=== PATIENT | female | born 1945 | race Caucasian/White ===

== ENCOUNTER 2017-06-17 08:22 | Inpatient (IN) | payer MEDICARE ==
[~2017-06-17] VITALS: Ht 154.9 cm; Wt 55.4 kg
[2017-06-17] MEDS ORDERED: LISI10TA4 (08:38)
[2017-06-17] MEDS ORDERED: CITA10TA5 (08:38)
[2017-06-17] MEDS ORDERED: HYDR-643 (08:38)
[2017-06-17] MEDS: VITAMIN D 1,000 INTERNATIONAL UNITS TABLET PO SCH (09:00)
[2017-06-17] MEDS ORDERED: OMEPRAZOLE 20 MG CAP PO SCH (09:00)
[2017-06-17 09:39] LABS: MEAN CORPUSCULAR HEMOGLOBIN 30.8 pg (27.0-33.0); MEAN CORPUSCULAR HGB CONC 33.7 g/dl (32.0-36.5); MEAN CORPUSCULAR VOLUME 91.3 fl (80.0-96.0); PLATELET COUNT, AUTOMATED 205 10^3/uL (150-450); RED CELL DISTRIBUTION WIDTH 12.2 % (11.5-14.5); WHITE BLOOD COUNT 5.5 10^3/uL (4.0-10.0)
[2017-06-17 10:10] LABS: ALBUMIN/GLOBULIN RATIO 1.43 (1.00-1.93); ALKALINE PHOSPHATASE 67 U/L (45-117); ALT/SGPT 18 U/L (12-78); ANION GAP 6 MEQ/L (8-16); AST/SGOT 13 U/L (15-37); BILIRUBIN,DIRECT 0.1 MG/DL (0.0-0.2); BILIRUBIN,TOTAL 0.4 MG/DL (0.2-1.0); BLOOD UREA NITROGEN 13 MG/DL (7-18); CALCIUM LEVEL 9.5 MG/DL (8.8-10.2); CARBON DIOXIDE LEVEL 29 MEQ/L (21-32); CHLORIDE LEVEL 107 MEQ/L (98-107); CREATININE FOR GFR 0.65 MG/DL (0.55-1.02); GLOMERULAR FILTRATION RATE > 60.0 (>39); GLUCOSE, FASTING 101 MG/DL (83-110); POTASSIUM SERUM 4.1 MEQ/L (3.5-5.1); SODIUM LEVEL 142 MEQ/L (136-145); TOTAL PROTEIN 6.8 GM/DL (6.4-8.2)
[2017-06-17] MEDS ORDERED: HYDR-643 PO (10:25)
[2017-06-17] MEDS ORDERED: CITA10TA5 PO (10:25)
[2017-06-17] MEDS ORDERED: LISI10TA4 PO (10:25)
[2017-06-17] MEDS ORDERED: ACET50TAOT PO (11:14)
[2017-06-17 11:20] LABS: METHADONE URINE NEGATIVE (NEGATIVE)
--- NOTE | 2017-06-17 11:43 | REP ---
CT Head without contrast HISTORY: Psychosis COMPARISON: 03/24/2017 Areas of decreased attenuation are present in the periventricular and subcortical white matter. This represents small-vessel ischemic disease. There is no intraparenchymal hemorrhage, acute infarct, mass or midline shift. The ventricular system and cortical sulci are dilated consistent with moderate volume loss. A jitendra cisterna magna is present. There is no extra cerebral collection. There is no fracture. The visualized sinuses are clear. IMPRESSION: 1. Small vessel ischemic disease. 2. Moderate volume loss. Signed by Alfie Jacobson MD 06/17/2017 11:35 A
[2017-06-17 13:04] LABS: VITAMIN B12 LEVEL 740 PG/ML (247-911)
[2017-06-17 13:05] LABS: FOLATE > 24.0 NG/ML (>5.4)
[2017-06-17] MEDS ORDERED: MAALOX 30 ML SUSP *UDC PO PRN (15:30)
[2017-06-17] MEDS ORDERED: MOM 30ML SUSPENSION UDC PO PRN (15:30)
[2017-06-17] MEDS ORDERED: traZODone 50 MG TAB PO PRN (15:30)
[2017-06-17 17:47] VITALS: BP 144/82
[2017-06-17] MEDS ORDERED: hydrOXYzine 50 MG TAB PO SCH (21:00)
[2017-06-18 06:34] VITALS: BP 139/72
[2017-06-18] MEDS ORDERED: CitaloPRAM (CeleXA) 10 MG TABLET PO SCH (09:00)
--- NOTE | 2017-06-18 09:44 | HPEPDOC ---
[facility] Medical History & Physical Date of Admission Jun 17, 2017 History and Physical PCP: Dr Lee ATTENDING: Dr. Charbel Cullen HPI: 72yo[address] [facility] for psychosis NOS, being medically examined today. No acute medical complaints today. Denies any fevers, chills, weakness, fatigue , GOLDMAN, CP, SOB, cough, palpitations, abdominal pain, N/V/D or changes in bowel or bladder habits. PMHx: Hypertension Depression Anxiety Unsteady gait. Uses walker as needed GERD Vitamin D Def PSHX: Tonsillectomy Hysterectomy SOCHX: Resides in: [facility] Marital Status: Kids: 4 Employment: Retired medical aid Tobacco use: Denies ETOH: Denies Illicit Drugs: Denies IV Drug Use: Denies Tattoos done unprofessionally: Denies FAMHX: Mother: , heart disease Father: , COPD Siblings: One brother , CLOTILDE Children: 4 Alive, well Unexpected deaths due to medical reasons: None. ROS: As noted in HPI, otherwise 11pt ROS of systems reviewed and remarkable only for a recent fall which the patient states she was not using a walker. She states she tripped. She did not have injury. PE: GEN: 72 yo F, appears stated age. Well-nourished, well developed. No acute distress. Alert and oriented x 3. Pleasant, interactive. HEENT: Normocephalic, atraumatic. Pupils are equal, round, and reactive to light. Extraocular movements are intact. No nystagmus appreciated. Sclera are nonicteric. Conjunctiva without injection. Nose midline. Nasal turbinates without bogginess. EACs both patent BL. TMs both visualized and mcnamara with good cone of light, no bulging or erythema. No facial asymmetry. Moist mucous membranes. Dentition fair. Pharynx pink and moist, no cobblestoning. Neck supple , trachea midline. No lymphadenopathy or thyromegaly appreciated. CHEST: Regular rate and rhythm, +S1, +S2 LUNGS: Clear to auscultation bilaterally. No wheezes, rales, or rhonchi. Breathing appears symmetric and easy. Patient is speaking in full sentences. No accessory muscle use. ABD: Round, soft, non-tender, non-distended. +Bowel sounds throughout. No rebound or guarding. No costovertebral angle tenderness. EXT: Pulses 2+ bilaterally dorsalis pedis and radial. No lower extremity edema appreciated. SKIN: [place], dry, warm. Capillary refill <2sec. No rashes. NEURO: Alert and oriented x 3. Cranial nerves III-XII are intact. No focal deficits appreciated. She is not using any assistive devices at this time. EKG: pending CT Head 06/17/17 1. Small vessel ischemic disease. 2. Moderate volume loss. UA/urine culture pending. A&P: [address]yo[address] [facility] for psychosis NOS 1. Psych. Plan per Psychiatry. Obtain baseline EKG to assure the safety of psychiatric medications as they can prolong the QT interval. Request UA/urine culture. Vitamin B12, folate, RPR, TSH are noted within normal limits. ESR, MARK, RF, Lyme screen WNL 06/22. Evaluation with [facility]arg[facility] Neurology 06/22. Will request copy of records including any previous MRI brain. CT head as above. Add vitamin D level. 2. Hypertension. Continue lisinopril 10 mg daily with hold parameters. 3. Follow up with PCP on discharge. 4. History of Unsteady gait. Request physical therapy evaluation. 5. GERD. Continue PPI. 6. Vitamin D deficiency. Continue supplement. Update vitamin D level. 7. Staff member Jennifer present throughout exam. Vital Signs Vital Signs Date Time Temp Pulse Resp B/P (MAP) Pulse Ox O2 Delivery O2 Flow Rate FiO2 06/18/17 06:34 98.5 94 18 139/72 (94) 06/17/17 17:47 97 Room Air Laboratory Data Labs 24H Item Value Date Time White Blood Count 5.5 10^3/uL 06/17/17918 Red Blood Count 4.58 10^6/uL 06/17/17918 Hemoglobin 14.1 g/dl 06/17/17918 Hematocrit 41.8 % 06/17/17918 Mean Corpuscular Volume 91.3 fl 06/17/17918 Mean Corpuscular Hemoglobin 30.8 pg 06/17/17918 Mean Corpuscular Hemoglobin Concent 33.7 g/dl 06/17/17918 Red Cell Distribution Width 12.2 % 06/17/17918 Platelet Count 205 10^3/uL 06/17/17918 Sodium Level 142 MEQ/L 06/17/17918 Potassium Level 4.1 MEQ/L 06/17/17918 Chloride Level 107 MEQ/L 06/17/17918 Carbon Dioxide Level 29 MEQ/L 06/17/17918 Anion Gap 6 MEQ/L L 06/17/17918 Blood Urea Nitrogen 13 MG/DL 06/17/17918 Creatinine 0.65 MG/DL 06/17/17918 Glomerular Filtration Rate > 60.0 06/17/17918 Fasting Glucose 101 MG/DL 06/17/17918 Calcium Level 9.5 MG/DL 06/17/17918 Total Bilirubin 0.4 MG/DL 06/17/17918 Direct Bilirubin 0.1 MG/DL 06/17/17918 Aspartate Amino Transf (AST/SGOT) 13 U/L L 06/17/17918 Alanine Aminotransferase (ALT/SGPT) 18 U/L 06/17/17918 Alkaline Phosphatase 67 U/L 06/17/17918 Total Protein 6.8 GM/DL 06/17/17918 Albumin 4.0 GM/DL 06/17/17918 Albumin/Globulin Ratio 1.43 06/17/17918 Vitamin B12 Level 740 PG/ML 06/17/17918 Folate > 24.0 NG/ML 06/17/17918 Thyroid Stimulating Hormone (TSH) 0.787 uIU/ML 06/17/17918 Salicylates Level < 1.7 MG/DL L 06/17/17918 Urine Opiates Screen NEGATIVE 06/17/17918 Urine Methadone Screen NEGATIVE 06/17/17918 Acetaminophen Level < 2.0 UG/ML L 06/17/17918 Urine Barbiturates Screen NEGATIVE 06/17/17918 Urine Phencyclidine Screen NEGATIVE 06/17/17918 Urine Amphetamines Screen NEGATIVE 06/17/17918 Urine Benzodiazepines Screen NEGATIVE 06/17/17918 Urine Cocaine Metabolite Screen NEGATIVE 06/17/17918 Urine Cannabinoids Screen NEGATIVE 06/17/17918 Ethyl Alcohol Level < 0.003 % 06/17/17918 Rheumatoid Factor < 10.0 IU/ML 06/30/16944 Anti-Nuclear Antibody Screen Negative 06/30/16944 Syphilis Serology NONREACTIVE 06/17/17918 Lyme Disease IgG/IgM Antibodies <0.91 ISR 06/30/16 09 Lyme Disease IgM Ab Quantitation <0.80 index 06/30/16944 Lupus Anticoag DRVVT Screen Ratio 0.9 06/30/16944 Erythrocyte Sedimentation Rate 9 mm/hr 06/30/16 0945 Home Medications Scheduled Acetaminophen (Acetaminophen) 500 Mg Tab, 1,000 MG PO TID Citalopram Hydrobromide (Citalopram Hydrobromide) 10 Mg Tab, 10 MG PO BID PT STATES SHE RAN OUT RECENTLY AND NEEDS A NEW SCRIPT Hydroxyzine HCl (Hydroxyzine HCl) 10 Mg Tab, 10 MG PO QHS Lisinopril (Lisinopril) 10 Mg Tab, 10 MG PO DAILY Allergies Coded Allergies: No Known Allergies (Unverified , 06/17/17) Apple Gillis Jun 18, 2017 09:44
[2017-06-18] MEDS: ARIPiprazole 2 MG TAB PO SCH (10:07)
[2017-06-18] MEDS: VITAMIN D 1,000 INTERNATIONAL UNITS TABLET PO SCH (10:08)
[2017-06-18] MEDS: LISINOPRIL 10 MG TAB PO SCH (10:16)
[2017-06-18] MEDS: PANTOPRAZOLE 20 MG TAB PO SCH (11:02)
[2017-06-18] MEDS: ACETAMINOPHEN TAB 650MG DOSE (2X325MG) PO PRN ×2 (11:03→20:55)
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
[2017-06-18] MEDS ORDERED: hydrOXYzine 10 MG TAB PO PRN (11:45)
[2017-06-18] MEDS: DONEPEZIL 5 MG TAB PO SCH (12:33)
--- NOTE | 2017-06-18 15:46 | ECGEPIP ---
Stationary ECG Study [facility] Test Date: 2017-06-18 Pat Name: VARUN LUNA Department: Room: [place] [address] Gender: F Ip Attorney: : 1945 Requested By: Apple Gillis Order Number: [id number] Reading MD: Svitlana Faust Measurements Intervals [place] Rate: 76 P: 71 ID: 131 QRS: 71 QRSD: 90 T: 69 QT: 391 QTc: 441 Interpretive Statements SINUS RHYTHM POSSIBLE RIGHT VENTRICULAR CONDUCTION DELAY MINIMAL ST DEPRESSION PRIOR WITH LEFT AXIS RATE SLOWER Electronically Signed On 06-18-2017 15:46:31 EDT by Svitlana Faust
[2017-06-18 18:51] VITALS: BP 138/84
[2017-06-18] MEDS: hydrOXYzine 10 MG TAB PO SCH (20:55)
[2017-06-19 07:12] VITALS: BP 126/62
--- NOTE | 2017-06-19 09:04 | MHIPNPDOC ---
[facility] Progress Note Progress Note DATE OF SERVICE: 06/19/17 HISTORY: day 3 of admission for auditory hallucinations. VITAL SIGNS: See below. NEW TEST RESULTS: UA-negative. Neurology eval of 06/2016 with fu 08/2016 received and reviewed. Stationary ECG Study [facility] Test Date: 2017-06-18 Pat Name: DELORIS LUNA Department: Room: [place] [address] Gender: F Loss Prevention Consultant: : 1945 Requested By: Apple Gillis Order Number: [id number] Reading MD: Svitlana Sims Measurements Intervals [place] Rate: 76 P: 71 PA: 131 QRS: 71 QRSD: 90 T: 69 QT: 391 QTc: 441 Interpretive Statements SINUS RHYTHM POSSIBLE RIGHT VENTRICULAR CONDUCTION DELAY MINIMAL ST DEPRESSION PRIOR WITH LEFT AXIS RATE SLOWER Electronically Signed On 06-18-2017 15:46:31 EDT by Svitlana Sims DD: Svitlana Sims DO 06/18/17 1433 CURRENT MEDICATIONS: See below. MENTAL STATUS EXAMINATION: General appearance: Patient is a 72-year old female, who is frail, wears glasses , needs the handrails to ambulate in hallway, medium height, dark hair, good eye contact. Speech: spontaneous, mumbles, soft. Thought processes: goal directed Thought content: appropriate. Abstract reasoning and computation: good Description of associations: fair Description of abnormal or psychotic thoughts: auditory disturbances, frustrated and said she wanted a car to hit her. Judgment: limited Insight: poor. Orientation: oriented to place, time, person Recent and remote memory: impaired Attention span and concentration:impaired. Fund of knowledge: full. Mood: ""not too bad" Affect: anxious, keeps saying she can leave in 3 days. DIAGNOSES: 1. Schizophreniform disorder 2. anxiety disorder by history, unspecified. 3. psychotic disorder, unspecified 4. r/o Alzheimer's dementia 5. r/o Schizophrenia ASSESSMENT:Deloris reports having slept well and denies hearing "anything" last night. No reports by night baker that she was yelling at voices. Pt is in total denial of the possibility she has a psychiatric disorder. She is requesting to leave. Informed that we need a few more days to make sure the medication is effective and her problem is resolved or on it's way to being resolved. She was informed she must have psychiatric follow up on a regular basis after leaving the hospital. She seemed agreeable and to understand this. It is noted pt was wearing attends this am. Neurology consult confirms no dementia. Pt was instructed to seek psychiatric assistance a year ago and she has refused for no apparent reason. The EMR shows she informed our staff that she heard voices years ago too but that was never reported until now. Pt remains in her room declining participation in activities offered on the unit. Pt encouraged to get up and walk every hour to move and deep breathe to prevent any lung disease. MANAGEMENT PLAN: continue current course of medication which is Citalopram 20 mg and Abilify 2 mg, hydroxyzine 10 mg at hs. Evaluate effectiveness again on Thursday. Continue close obs. schedule meting with in anticipation of discharge early next week. Head CT shows small vessel disease. Enc pt OOB and ambulating. TIME SPENT: 25 minutes. Vital Signs Vital Signs Date Time Temp Pulse Resp B/P (MAP) Pulse Ox O2 Delivery O2 Flow Rate FiO2 06/19/17 07:12 98.4 80 16 126/62 (83) 06/17/17 17:47 97 Room Air Current Medications Current Medications Acetaminophen (Tylenol Tab) 650 mg Q6HP PRN PO HEADACHE or DISCOMFORT Last administered on 06/18/17 20:55; Start 06/17/17 at 15:30; Stop 07/17/17 at 15 :29 Al Hydrox/Mg Hydrox/Simethicone (Mylanta) 30 ml Q4HP PRN PO HEARTBURN/ INDIGESTION; Start 06/17/17 at 15:30; Stop 07/17/17 at 15:29 Aripiprazole (AbiLIFY) 2 mg QAM PO Last administered on 06/18/17 10:07; Start 06/18/17 at 09:00; Stop 07/18/17 at 08:59 Citalopram Hydrobromide (CeleXA) 10 mg QAM PO Last administered on 06/18/17 10:08; Start 06/18/17 at 09:00; Stop 06/18/17 at 14:49; Status DC Citalopram Hydrobromide (CeleXA) 20 mg QAM PO ; Start 06/19/17 at 09:00; Stop 07/19/17 at 08:59 Donepezil HCl (AriCEPT) 2.5 mg DAILY PO Last administered on 06/18/17 12:33; Start 06/18/17 at 09:00; Stop 07/18/17 at 08:59 Home Med (Med Rec Complete!) ASDIRECTED XX ; Start 06/17/17 at 10:30; Stop at 10:30; Status DC Hydroxyzine HCl (Atarax) 10 mg Q6HP PRN PO ANXIETY/AGITATION; Start 06/18/17 at 11:45; Stop 07/18/17 at 11:44 Hydroxyzine HCl (Atarax) 10 mg QHS PO Last administered on 06/18/17 20:55; Start 06/18/17 at 21:00; Stop 07/18/17 at 20:59 Hydroxyzine HCl (Atarax) 50 mg QHS PO ; Start 06/17/17 at 21:00; Stop at 20:59; Status Cancel Lisinopril (Prinivil) 10 mg DAILY PO Last administered on 06/18/17 10:16; Start 06/18/17 at 09:00; Stop 07/18/17 at 08:59 Magnesium Hydroxide (Milk Of Magnesia) 30 ml DAILYPRN PRN PO CONSTIPATION; Start 06/17/17 at 15:30; Stop 07/17/17 at 15:29 Omeprazole (PriLOSEC) 20 mg DAILY PO ; Start 06/17/17 at 09:00; Stop 06/18/17 at 09:47; Status DC Pantoprazole Sodium (Protonix) 20 mg DAILY PO Last administered on 06/18/17 11:02; Start 06/18/17 at 09:00; Stop 07/18/17 at 08:59 Trazodone HCl (Desyrel) 50 mg QHSP PRN PO INSOMNIA; Start 06/17/17 at 15:30; Stop 07/17/17 at 15:29; Status Cancel Vitamin D (Vitamin D) 1,000 units DAILY PO Last administered on 06/18/17 10: 08; Start 06/17/17 at 09:00; Stop 07/17/17 at 08:59 Allergies Coded Allergies: No Known Allergies (Unverified , 06/17/17) Joy Carrasquillo 13, 2017 09:04
[2017-06-19] MEDS: ARIPiprazole 2 MG TAB PO SCH (09:45)
[2017-06-19] MEDS: PANTOPRAZOLE 20 MG TAB PO SCH (09:45)
[2017-06-19] MEDS: LISINOPRIL 10 MG TAB PO SCH (09:45)
[2017-06-19] MEDS: CitaloPRAM (CeleXA) 20 MG TAB PO SCH (09:45)
[2017-06-19] MEDS: VITAMIN D 1,000 INTERNATIONAL UNITS TABLET PO SCH (09:46)
[2017-06-19] MEDS: DONEPEZIL 5 MG TAB PO SCH (09:46)
[2017-06-19 18:00] VITALS: BP 164/80
[2017-06-19] MEDS: hydrOXYzine 10 MG TAB PO SCH (20:22)
[2017-06-19] MEDS: ACETAMINOPHEN TAB 650MG DOSE (2X325MG) PO PRN (20:23)
[2017-06-20 07:04] VITALS: BP 136/74
[2017-06-20] MEDS: ARIPiprazole 2 MG TAB PO SCH (09:49)
[2017-06-20] MEDS: DONEPEZIL 5 MG TAB PO SCH (09:49)
[2017-06-20] MEDS: VITAMIN D 1,000 INTERNATIONAL UNITS TABLET PO SCH (09:49)
[2017-06-20] MEDS: PANTOPRAZOLE 20 MG TAB PO SCH (09:49)
[2017-06-20] MEDS: CitaloPRAM (CeleXA) 20 MG TAB PO SCH (09:49)
[2017-06-20] MEDS: LISINOPRIL 10 MG TAB PO SCH (09:50)
[2017-06-20 18:00] VITALS: BP 126/63
[2017-06-20] MEDS: hydrOXYzine 10 MG TAB PO SCH (22:15)
[2017-06-20] MEDS: ACETAMINOPHEN TAB 650MG DOSE (2X325MG) PO PRN (22:18)
--- NOTE | 2017-06-20 22:53 | MHIPN ---
DATE: 06/20/2017 SUBJECTIVE: The patient today was lying in bed but she did sit up for me. She told me that she is doing fine and she is ready to go home. She admits that she was just "hearing the noise" and so she is still hallucinating. She does say that she slept at night. MENTAL STATUS EXAMINATION: The patient is alert and oriented times three. Eye contact is fairly good. She is verbally spontaneous. There is no formal thought disorder noted. She said her mood is fine, affect is restricted but appropriate to her mood. She does continue to have auditory hallucinations. Concentration fair. Memory intact. Insight and judgment is poor. DIAGNOSES: 1. Other specified psychotic disorder. 2. Unspecified anxiety disorder. TREATMENT PLAN: We will continue to monitor the patient for ongoing psychotic symptoms. We will continue to titrate her medications as indicated. GUILLERMO
[2017-06-21 07:12] VITALS: BP 132/79
[2017-06-21] MEDS: CitaloPRAM (CeleXA) 20 MG TAB PO SCH (09:16)
[2017-06-21] MEDS: VITAMIN D 1,000 INTERNATIONAL UNITS TABLET PO SCH (09:16)
[2017-06-21] MEDS: PANTOPRAZOLE 20 MG TAB PO SCH (09:16)
[2017-06-21] MEDS: ARIPiprazole 2 MG TAB PO SCH (09:16)
[2017-06-21] MEDS: DONEPEZIL 5 MG TAB PO SCH (09:16)
[2017-06-21] MEDS: LISINOPRIL 10 MG TAB PO SCH (09:19)
[2017-06-21] MEDS: BACTRIM 160MG/800MG DS TAB PO SCH ×2 (16:52→21:44)
[2017-06-21 18:00] VITALS: BP 170/90
--- NOTE | 2017-06-21 19:17 | MHIPN ---
DATE: 06/21/2017 The patient today states that she is doing okay. She says she slept okay. When I asked her if she was hearing any noise today, she stated that it is kind of hard to tell because the heat unit in her room was pretty noisy also. MENTAL STATUS EXAMINATION: She is alert and oriented times three. Eye contact is fairly good. She is not suicidal or homicidal. She said her mood was good. Affect was full range and appropriate. It is not clear whether she is still having auditory hallucinations or not. Concentration is fair. Insight and judgment is poor. There is no formal thought disorder noted. DIAGNOSIS: Other specified psychotic disorder. TREATMENT PLAN: At this point, we will continue to monitor the patient for resolution of psychotic symptoms and continue to titrate the medication as indicated.
[2017-06-21] MEDS: hydrOXYzine 10 MG TAB PO SCH (21:45)
[2017-06-22 06:38] VITALS: BP 148/91
[2017-06-22 09:05] VITALS: BP 144/90
[2017-06-22] MEDS: BACTRIM 160MG/800MG DS TAB PO SCH (09:05)
[2017-06-22] MEDS: VITAMIN D 1,000 INTERNATIONAL UNITS TABLET PO SCH (09:05)
[2017-06-22] MEDS: PANTOPRAZOLE 20 MG TAB PO SCH (09:05)
[2017-06-22] MEDS: CitaloPRAM (CeleXA) 20 MG TAB PO SCH (09:05)
[2017-06-22] MEDS: LISINOPRIL 10 MG TAB PO SCH (09:05)
[2017-06-22] MEDS: ARIPiprazole 2 MG TAB PO SCH (09:06)
[2017-06-22] MEDS: DONEPEZIL 5 MG TAB PO SCH (09:06)
[2017-06-22] MEDS ORDERED: SULF1TAB23 PO (13:52)
[2017-06-22] MEDS ORDERED: CELE20TA PO (13:52)
[2017-06-22] MEDS ORDERED: ARIP5TA PO (13:52)
[2017-06-22] MEDS ORDERED: ARIC1TAB PO (13:52)
[2017-06-22] MEDS ORDERED: HYDR-643 PO (13:52)
--- NOTE | 2017-06-22 14:10 | MHDSPDOC ---
[facility] Discharge Summary Discharge Summary DATE OF ADMISSION: Jun 17, 2017 at 15:22 DATE OF DISCHARGE: DISCHARGE DIAGNOSES: 1. Schizophrenia REASON FOR ADMISSION: Pt brought into ED by for c/o auditory hallucinations that are most prevalent in afternoon and nighttime hours. pt yells at buzzing sound in her head and the female voice she hears. this has been ongoing for 8 years, She has refused her neurologists recommendation that she see a psychiatrist. She was on Valium in the past for anxiety disorder. Pt also has the symptom of paranoia thinking her neighbors wanted to take her house and were the cause of the voices, that the voices were coming from their house across the street. CONSULTANTS INVOLVED: [facility] TREATMENT AND PROGRESS ON THE UNIT : Pt did not want admission. She refused all efforts to get her to participate in programming. She remained in her room occupying herself with reading, crossword puzzles and sleeping. She offered many excuses as to why she could not be part of the milieu and did not grasp the concept of coping skills or community support. It was explained to pt that she likely has schizophrenia to which she replied "Oh dear" but did not seem at all surprised and did not ask any questions about the diagnosis. She was informed she must attend outpatient psychiatry appointments if she wishes to stay well and out of the Mental health eng. Pt seemed to have a great deal of difficulty understanding that Behavioral health and Mental health are the same thing. Pt does not seem to accept that she has a serious mental illness but does agree that she must see a psychiatrist at [facility] on discharge. HOSPITAL COURSE:pt was started on Abilify at 2 mg to help with the noises in her head. She tolerated the medication without side effects. Denies constipation. Pt was advised she will need to have her CMP and Lipids and Glucose evaluated every 6 months as metabolic syndrome is a potential problem with the Abilify. She agreed to do this as an outpatient. Pt had made a threat to burn down her home when she was having the hallucinations but denies any thoughts or intention of doing so at this time. Pt would not use our shower but did try to keep herself clean. She was visited several times by her during the course of her stay here. No interactions with peers. Took meals in her room. Pt has no interest in getting out of the house more or seeing people besides her . It was thought initially her hallucinations were due to dementia but she was evaluated for Alzheimer's approximately one year ago by Dr. Carter at [facility]. He did not find that this was the case. Other tests such as EEG, were done which was negative. CT of head does show some age related vascular changes, no lesion's or infarcts. Pt did have menigitis years ago and memory difficulties noted after that treatment. Pt was put on Aricept while here to try and prevent and further loss of memory. Pt was a very poor historian and took a long time to return calls. Records from Dr. Carter were reviewed and sent to medical records. DISCHARGE ASSESSMENT:Pt denies suicidal thoughts or thoughts of burning her home. Ghulam arrived on unit for discharge planning meeting. Meds explained along with need for labs 2 x a year. It wa made abundantly clear to Deloris that she must attend outpatient psychiatry med mgt appts. Ghulam explained that reads paper for 12 hours a day. She sits and rarely gets up. She will do the laundry and fold it but no cooking, no cleaning. pt has no interest in increasing her social life or becoming more engaged with society. MENTAL STATUS EXAMINATION ON DISCHARGE: General appearance: Patient is a 72-year old female, who is frail, wears glasses , petite in stature, medium dark hair, good eye contact. Speech: spontaneous, mumbles, soft. Thought processes: goal directed Thought content: appropriate. Abstract reasoning and computation: good Description of associations: fair Description of abnormal or psychotic thoughts: auditory disturbances, frustrated and said she wanted a car to hit her. Judgment: limited Insight: poor. Orientation: oriented to place, time, person Recent and remote memory: impaired Attention span and concentration:impaired. Fund of knowledge: full. Mood: ""pretty good". Affect: anxious, keeps saying she can leave in 3 days. MEDICATIONS ON DISCHARGE: - citalopram for depression/anxiety. - hydroxyzine for insomnia, agitation or anxiety up to 2 daily. - Aricept for memory PLAN/FOLLOWUP ARRANGEMENTS: [facility] outpatient clinic. [facility] as needed, Kyle Nguyen as needed. The amount of time spent in the coordination of care for this patient was approximately 40 minutes. Vital Signs/I&Os Vital Signs Date Time Temp Pulse Resp B/P (MAP) Pulse Ox O2 Delivery O2 Flow Rate FiO2 10/16/17 09:05 144/90 06/22/17 06:38 98.5 94 20 06/21/17 07:12 Room Air 06/17/17 17:47 97 Laboratory Data Microbiology Microbiology 06/18/17 Urine Culture - Final, Complete Escherichia Coli Medications Scheduled Acetaminophen (Acetaminophen) 500 Mg Tab, 1,000 MG PO TID, (Reported) Aripiprazole (Aripiprazole) 5 Mg Tab, 5 MG PO QAM for auditory hallucinations for 7 Days, #7 Citalopram Hydrobromide (Celexa) 20 Mg Tab, 20 MG PO QAM for DEPRESSION for 7 Days, #7 take everyday, do not stop med abruptly Donepezil Hydrochloride (Aricept) 5 Mg Tab, 2.5 MG PO DAILY for memory for 7 Days, #0.5 take 1/2 pill daily. Hydroxyzine HCl (Hydroxyzine HCl) 10 Mg Tab, 10 MG PO QHS, (Reported) Hydroxyzine HCl (Hydroxyzine HCl) 10 Mg Tab, 10 MG PO QHS for ANXIETY/AGITATION for 7 Days, #14 may dose for sleep in addition to anxiety or agitation. take up to 2 times a day including for sleep. Lisinopril (Lisinopril) 10 Mg Tab, 10 MG PO DAILY, (Reported) Trimethoprim/Sulfamethoxazole (Smz-Tmp Ds 800-160 mg) 1 Tab Tab, 1 TAB PO BID for UTI for 9 Days, #18 Allergies Coded Allergies: No Known Allergies (Unverified , 06/17/17) Joy Carrasquillo Jun 22, 2017 14:10
== END 2017-06-22 15:00 | disposition home or self-care (01) | DRG 885 ==
LOC: M ED 08:22 → M ED INP 15:22 → M PSY 17:39
PROVIDERS: ADMIT Psychiatry & Neurology Psychiatry; ATTEND Psychiatry & Neurology Psychiatry
DX: F20.9 Schizophrenia, unspecified (principal); F41.9 Anxiety disorder, unspecified; I10 Essential (primary) hypertension; R26.81 Unsteadiness on feet; E55.9 Vitamin D deficiency, unspecified; K21.9 Gastro-esophageal reflux disease without esophagitis; Z79.899 Other long term (current) drug therapy

== ENCOUNTER 2018-01-22 09:06 | Emergency (ER) | payer MEDICARE ==
[2018-01-22 10:24] LABS: HEMATOCRIT 40.6 % (36.0-47.0); HEMOGLOBIN 13.7 g/dl (12.0-15.5); MEAN CORPUSCULAR HEMOGLOBIN 30.3 pg (27.0-33.0); MEAN CORPUSCULAR HGB CONC 33.7 g/dl (32.0-36.5); MEAN CORPUSCULAR VOLUME 89.8 fl (80.0-96.0); PLATELET COUNT, AUTOMATED 173 10^3/uL (150-450); RED BLOOD COUNT 4.52 10^6/uL (4.00-5.40); RED CELL DISTRIBUTION WIDTH 12.4 % (11.5-14.5); WHITE BLOOD COUNT 6.1 10^3/uL (4.0-10.0)
[2018-01-22 10:33] LABS: AMORPHOUS SEDIMENT SMALL (NEGATIVE); APPEARANCE, URINE CLOUDY (CLEAR); BACTERIA, URINE AUTO 3+ (NEGATIVE); BILIRUBIN, URINE AUTO NEGATIVE (NEGATIVE); BLOOD, URINE BLOOD 1+ (NEGATIVE); COLOR, URINE YELLOW (YELLOW); GLUCOSE, URINE (UA) AUTO NEGATIVE (NEGATIVE); KETONE, URINE AUTO TRACE mg/dL (NEGATIVE); LEUKOCYTE ESTERASE, URINE AUTO 3+ (NEGATIVE); MUCUS, URINE SMALL (NEGATIVE); NITRITE, URINE AUTO NEGATIVE (NEGATIVE); PROTEIN, URINE AUTO 1+ mg/dL (NEGATIVE); RBC, URINE AUTO 36 /HPF (0-3); SPECIFIC GRAVITY URINE AUTO 1.018 (1.002-1.035); SQUAMOUS EPITHELIAL CELL UR AU 4 /HPF (0-6); UROBILINOGEN, URINE AUTO 0.2 mg/dL (0.0-2.0); WBC, URINE AUTO TNTC /HPF (0-3)
[2018-01-22 10:52] LABS: ACETAMINOPHEN LEVEL < 2.0 UG/ML (10.0-30.0); ALBUMIN 3.5 GM/DL (3.2-5.2); ALBUMIN/GLOBULIN RATIO 1.06 (1.00-1.93); ALKALINE PHOSPHATASE 108 U/L (45-117); ALT/SGPT 80 U/L (12-78); ANION GAP 5 MEQ/L (8-16); AST/SGOT 21 U/L (7-37); BILIRUBIN,DIRECT 0.1 MG/DL (0.0-0.2); BILIRUBIN,TOTAL 0.4 MG/DL (0.2-1.0); BLOOD UREA NITROGEN 13 MG/DL (7-18); CALCIUM LEVEL 8.7 MG/DL (8.8-10.2); CARBON DIOXIDE LEVEL 28 MEQ/L (21-32); CHLORIDE LEVEL 108 MEQ/L (98-107); CREATININE FOR GFR 0.73 MG/DL (0.55-1.30); ETHYL ALCOHOL (ETHANOL) < 0.003 % (0.000-0.010); GLOMERULAR FILTRATION RATE > 60.0 (>39); GLUCOSE, FASTING 116 MG/DL (70-100); POTASSIUM SERUM 3.6 MEQ/L (3.5-5.1); SALICYLATE LEVEL < 1.7 MG/DL (5.0-30.0); SODIUM LEVEL 141 MEQ/L (136-145); TOTAL PROTEIN 6.8 GM/DL (6.4-8.2)
[2018-01-22 11:34] LABS: AMPHETAMINES LEVEL URINE NEGATIVE (NEGATIVE); BARBITURATES URINE NEGATIVE (NEGATIVE); BENZODIAZEPINES URINE NEGATIVE (NEGATIVE); CANNABINOIDS URINE NEGATIVE (NEGATIVE); COCAINE METABOLITE URINE NEGATIVE (NEGATIVE); METHADONE URINE NEGATIVE (NEGATIVE); OPIATES URINE NEGATIVE (NEGATIVE); PHENCYCLIDINE URINE NEGATIVE (NEGATIVE)
[2018-01-22] MEDS: NITROFURANTOIN (MACROBID) 100 MG CAP PO (13:50)
== END 2018-01-22 15:17 | disposition home or self-care (01) ==
LOC: M ED 09:06
DX: F29 Unspecified psychosis not due to a substance or known physiological condition (principal); I10 Essential (primary) hypertension; F20.9 Schizophrenia, unspecified; Z79.899 Other long term (current) drug therapy
CPT/HCPCS: G0480

== ENCOUNTER 2019-03-14 03:05 | Inpatient (IN) | payer MEDICARE ==
[~2019-03-14] VITALS: Ht 154.9 cm; Wt 56.0 kg
[~2019-03-14 03:05] MED LIST: ACET500T15 PO; ARIC1TAB PO; ARIP1TAB6 PO; CALCTAB92 PO; CELE20TA PO; CITA10TA5; CITA10TA5 PO; HYDR-643; HYDR-643 PO; IRON65TA PO; LISI10TA4; LISI10TA4 PO; MACR100C43 PO; OMEP20TA PO; SULF1TAB93 PO; VITA-121 PO
[2019-03-14] MEDS ORDERED: METAL LOCK LOOP XX ONE (03:11)
[2019-03-14 04:00] LABS: HEMATOCRIT 41.2 % (36.0-47.0); HEMOGLOBIN 13.7 g/dl (12.0-15.5); MEAN CORPUSCULAR HEMOGLOBIN 31.4 pg (27.0-33.0); MEAN CORPUSCULAR HGB CONC 33.3 g/dl (32.0-36.5); MEAN CORPUSCULAR VOLUME 94.3 fl (80.0-96.0); PLATELET COUNT, AUTOMATED 181 10^3/uL (150-450); RED BLOOD COUNT 4.37 10^6/uL (4.00-5.40)
[2019-03-14 04:54] LABS: ACETAMINOPHEN LEVEL < 2.0 UG/ML (10.0-30.0); ALBUMIN 3.5 GM/DL (3.2-5.2); ALT/SGPT 119 U/L (12-78); BILIRUBIN,DIRECT 0.3 MG/DL (0.0-0.2); BILIRUBIN,TOTAL 0.6 MG/DL (0.2-1.0); BLOOD UREA NITROGEN 9 MG/DL (7-18); CALCIUM LEVEL 8.7 MG/DL (8.8-10.2); CARBON DIOXIDE LEVEL 28 MEQ/L (21-32); CHLORIDE LEVEL 107 MEQ/L (98-107); CREATININE FOR GFR 0.75 MG/DL (0.55-1.30); ETHYL ALCOHOL (ETHANOL) < 0.003 % (0.000-0.010); GLOMERULAR FILTRATION RATE > 60.0 (>39); GLUCOSE, FASTING 93 MG/DL (70-100); POTASSIUM SERUM 2.7 MEQ/L (3.5-5.1); SALICYLATE LEVEL < 1.7 MG/DL (5.0-30.0); SODIUM LEVEL 143 MEQ/L (136-145); TOTAL PROTEIN 6.5 GM/DL (6.4-8.2)
[2019-03-14 05:04] LABS: APPEARANCE, URINE HAZY (CLEAR); BACTERIA, URINE AUTO 3+ (NEGATIVE); BILIRUBIN, URINE AUTO NEGATIVE (NEGATIVE); BLOOD, URINE BLOOD 1+ (NEGATIVE); COLOR, URINE YELLOW (YELLOW); GLUCOSE, URINE (UA) AUTO NEGATIVE (NEGATIVE); KETONE, URINE AUTO TRACE mg/dL (NEGATIVE); LEUKOCYTE ESTERASE, URINE AUTO 1+ (NEGATIVE); MUCUS, URINE SMALL (NEGATIVE); NITRITE, URINE AUTO NEGATIVE (NEGATIVE); PROTEIN, URINE AUTO NEGATIVE (NEGATIVE); RBC, URINE AUTO 6 /HPF (0-3); SPECIFIC GRAVITY URINE AUTO 1.011 (1.002-1.035); SQUAMOUS EPITHELIAL CELL UR AU 0 /HPF (0-6); UROBILINOGEN, URINE AUTO 0.2 mg/dL (0.0-2.0); WBC, URINE AUTO 7 /HPF (0-3)
[2019-03-14] MEDS ORDERED: POTASSIUM CHLORIDE 10 MEQ SR TABLET PO ONE (05:15)
[2019-03-14 05:16] LABS: AMPHETAMINES LEVEL URINE NEGATIVE (NEGATIVE); BARBITURATES URINE NEGATIVE (NEGATIVE); BENZODIAZEPINES URINE NEGATIVE (NEGATIVE); CANNABINOIDS URINE NEGATIVE (NEGATIVE); COCAINE METABOLITE URINE NEGATIVE (NEGATIVE); METHADONE URINE NEGATIVE (NEGATIVE); OPIATES URINE NEGATIVE (NEGATIVE); PHENCYCLIDINE URINE NEGATIVE (NEGATIVE)
[2019-03-14] MEDS ORDERED: BACTRIM 160MG/800MG DS TAB PO ONE (06:00)
--- NOTE | 2019-03-14 07:33 | REPVR ---
EXAM: CT Head Without Contrast EXAM DATE/TIME: 03/14/2019 7:00 AM CLINICAL HISTORY: 73 years old, female; Psychosis or psychotic disorder; Unspecified; Additional info: Psych clearance TECHNIQUE: Imaging protocol: Axial computed tomography images of the head without contrast. Radiation optimization: All CT scans at this facility use at least one of these dose optimization techniques: automated exposure control; mA and/or kV adjustment per patient size (includes targeted exams where dose is matched to clinical indication); or iterative reconstruction. COMPARISON: CT Head without contrast 06/17/2017 11:21 AM FINDINGS: Brain: There is a 3.5 x 2.3 cm posterior cranial fossa arachnoid cyst. Ventricles: There is age related cerebral atrophy with secondary ventricular dilatation. There is mild periventricular white matter hypoattenuation without mass effect. Bones/joints: Unremarkable. No acute fracture. Sinuses: Visualized sinuses are unremarkable. No fluid levels. Mastoid air cells: Visualized mastoid air cells are well aerated. No mastoid effusion. Soft tissues: Unremarkable. IMPRESSION: 1. No CT evidence of intracranial hemorrhage, mass effect or midline shift. 2. Age-related cerebral atrophy with chronic microangiopathic changes. 3. Degree of ventricular dilatation is felt to be out of proportion to the degree of cerebral atrophy. Correlate clinically for normal pressure hydrocephalus. 4. 3.5 x 2.3 cm posterior cranial fossa arachnoid cyst. 5. Grossly unchanged exam since 06/17/2017 Electronically signed by: Jace Diana On 03/14/2019 07:32:46 AM
[2019-03-14] MEDS ORDERED: IRON65TA2 PO (08:58)
[2019-03-14] MEDS ORDERED: ACET-897 PO (08:58)
[2019-03-14] MEDS ORDERED: OMEP10CA78 PO (08:58)
[2019-03-14] MEDS ORDERED: VITA200021 PO (08:58)
[2019-03-14] MEDS ORDERED: CALCTAB17 PO (08:58)
[2019-03-14] MEDS ORDERED: PATIENT COMMENT (09:02)
--- NOTE | 2019-03-14 13:30 | ED PDOC ---
Post-Departure Follow-Up dr carroll baca faxed formal report of ct head. d/w dr rock - no change f rom prior ct and he feels no signs or sx of normal press hydrocepnallus. Adam Yost MD Mar 14, 2019 13:30
[2019-03-14] MEDS ORDERED: MOM 30ML SUSPENSION UDC PO PRN (15:15)
--- NOTE | 2019-03-14 16:46 | ECGEPIP ---
[facility] - ED Test Date: 2019-03-14 Pat Name: VARUN LUNA Department: Room: - Gender: Female Blind Hanger: YISEL : 1945 Requested By: MARIELLE RODRIGUEZ Order Number: [id number] Reading MD: Charbel Cullen Measurements Intervals Garvin Rate: 69 P: DE: -1 QRS: QRSD: 93 T: QT: 414 QTc: 444 Interpretive Statements SUPRAVENTRICULAR RHYTHM Baseline artifact limits interpretation Electronically Signed on 03-14-2019 16:46:33 EDT by Charbel Cullen
[2019-03-14 20:33] VITALS: BP 193/107
[2019-03-14] MEDS: OLANZapine ORAL DISINTEGRATING TAB 5MG PO PRN (21:31)
[2019-03-14 22:34] VITALS: BP 140/90
[2019-03-15 06:35] VITALS: BP 111/57
--- NOTE | 2019-03-15 08:18 | HPEPDOC ---
General Date of Admission Mar 14, 2019 at 15:05 Date of Service: Mar 15, 2019 Attending Physician: RED CARBAJAL MD Chief Complaint The patient is a 73-year-old female admitted with a reason for visit of Depression,Unsp. History of Present Illness Deloris Gonsales is 73 -year-old female who was brought in by her in a confused state, and admitted to inpatient mental health on account of acute psychosis, insomnia delirium, with auditory hallucinations. Patient has a past medical history significant for depression, anxiety, hypertension. Patient has a history of schizophrenia. According to and has not been taking care of herself. She and had stopped attending primary care appointments On admit laboratory value was abnormal for potassium level of 2.9. Patient is unable to provide any history. Home Medications Scheduled Calcium/Magnesium/Zinc (Vbveawb-Ejxaqguat-Jppk Tablet) 1 Each Tablet, 1 TAB PO DAILY, (Reported) Cholecalciferol (Vitamin D3) (Vitamin D3) 2,000 Unit Capsule, 2,000 UNIT PO DAILY, (Reported) Ferrous Sulfate (Iron) 325 Mg Tablet, 325 MG PO DAILY, (Reported) Omeprazole (Omeprazole) 10 Mg Capsule.dr, 10 MG PO DAILY, (Reported) Scheduled PRN Acetaminophen (Tylenol Extra Strength) 500 Mg Tablet, 1,000 MG PO TID PRN for PAIN, (Reported) Miscellaneous Medications [Patient Comment] , (Reported) PATIENT'S STATES THE PATIENT IS SUPPOSED TO BE TAKING LISINOPRIL 10MG DAILY (LAST FILLED 07/20/18 FOR 90 DAYS) AND CITALOPRAM 20MG DAILY (LAST FILLED 10/11/18 FOR 30 DAYS) BUT HAS NOT TAKEN IN ABOUT 6 MONTHS DUE TO REFUSAL TO GO TO PCP FOR APPOINTMENT Allergies Coded Allergies: No Known Allergies (Unverified , 06/17/17) Past Medical History Medical History Hypertension Depression Anxiety Unsteady gait. Uses walker as needed GERD Vitamin D Def Surgical History Tonsillectomy Hysterectomy Family History Father: COPD Mother: Cardiovascular disease Social History Negative for tobacco, alcohol, polysubstance abuse A-FIB/CHADSVASC A-FIB History Current/History of A-Fib/PAF?: No Current PO Anticoag Therapy: No Review of Systems Other systems Review of systems as not completed due to patient's mental status Physical Examination Other physical findings GENERAL: Frail-appearing elderly female in no acute distress, ambulatory with walker SKIN : Warm, dry intact, but bilateral lower extremity discoloration HEENT: Atraumatic, normocephalic, PERRL, moist mucous membrane CARDIOVASCULAR: Regular rate and rhythm, S1S2, no JVD, no edema, distal pulses + and palpable RESP: CTAB, no accessory muscle use noted ABDOMEN: BS+ non distended non tender MS: no joint deformities NEURO: Alert and oriented x 1-2, CN2-12 grossly intact PSYCH: no anxiety or agitation Vital Signs Vital Signs Date Time Temp Pulse Resp B/P (MAP) Pulse Ox O2 Delivery O2 Flow Rate FiO2 03/15/19 06:35 97.9 64 18 111/57 (75) 03/14/19 20:33 96 03/14/19 16:22 Room Air Laboratory Data CBC/BMP Laboratory Tests 03/14/19 10:20 Microbiology Microbiology 03/14/19 Urine Culture, Received Pending Assessment/Plan Hypertension -Start patient on lisinopril 5 mg daily -titrate dose based on response to therapy and tolerance Hyperlipidemia -Low dose statin therapy Hypokalemia -Replete and monitor to keep greater than 4 DVT prophylaxis -Lovenox 40 mg daily Acute psychosis -Management by primary team Plan / VTE VTE Prophylaxis Ordered?: Yes JOSER OBERTO DUONG Mar 15, 2019 08:18
[2019-03-15 09:31] LABS: ALBUMIN 3.5 GM/DL (3.2-5.2); ALT/SGPT 79 U/L (12-78); BILIRUBIN,TOTAL 0.7 MG/DL (0.2-1.0); BLOOD UREA NITROGEN 14 MG/DL (7-18); CALCIUM LEVEL 9.4 MG/DL (8.8-10.2); CARBON DIOXIDE LEVEL 29 MEQ/L (21-32); CHLORIDE LEVEL 116 MEQ/L (98-107); CREATININE FOR GFR 0.83 MG/DL (0.55-1.30); GLOMERULAR FILTRATION RATE > 60.0 (>39); GLUCOSE, FASTING 78 MG/DL (70-100); POTASSIUM SERUM 3.3 MEQ/L (3.5-5.1); SODIUM LEVEL 138 MEQ/L (136-145)
[2019-03-15] MEDS: FERROUS SULFATE 325MG TAB PO SCH (09:52)
[2019-03-15] MEDS: LISINOPRIL 5 MG TAB PO SCH (09:52)
[2019-03-15] MEDS ORDERED: ENOXAPARIN 40 MG/0.4 ML SYRINGE (J1650) SC SCH (10:45)
[2019-03-15] MEDS: POTASSIUM CHLORIDE 10 MEQ SR TABLET PO SCH ×2 (11:10→21:51)
[2019-03-15] MEDS: ENOXAPARIN 40 MG/0.4 ML SYRINGE (J1650) SC SCH (11:40)
--- NOTE | 2019-03-15 11:55 | MHHPEPDOC ---
General Date Of Admission: Mar 14, 2019 Legal Status: 9.39 Chief Complaint "There's a gal that keeps annoying me" talk to the gal that isn't there History of Present Illness HISTORY OF THE PRESENT ILLNESS: Patient is a 73 -year-old , female, with a history of schizophrenia and not in any current outpatient psych treatment for years who was brought in under 9.41 made by due to pt no sleeping, eating, having AH causing her to be in a continuous dialog with people that aren't there, not care for herself, and refusing to go to medical appts per in ED. In ED pt appeared disheveled, disorganized, and distracted by AH off a "vee that annoy's me... a nuance kind of person that is frustrating all the time" and preoccupied with her being able to take her to outpatient appt s unable to focus or understand that she is being admitted to [facility]. Pt is a poor historian so history gathered from previous records. Psychiatric Review of Systems Depression (2 or more weeks): denies Psychosis: auditory hallucination, delusions, paranoia, disorganization PTSD: denies Anxiety: situational anxiety Anxiety/ 6 months or more of: restlessness, keyed up, difficulty concentrating, sleep disturbance Past Psychiatric History Previous Psychiatric Diagnosis: anxiety disorder, schizophrenia, Alzheimer's Previous Psychiatric Admissions: [facility] years ago, [facility] 06/21/17 for psychosis Suicide Attempts: denies Psychiatric Follow-up: Dr. Chirinos in past, no current provider Psychiatric medications: citalopram Past Medical History Medical Problems PMHx: Hypertension Depression Anxiety Unsteady gait. Uses walker as needed GERD Vitamin D Def PSHX: Tonsillectomy Hysterectomy Head CT w/o contrast on admission: Highly patient services representative of dementia as has atrophy and chronic microangiopathic changes, venatical dilation IMPRESSION: 1. No CT evidence of intracranial hemorrhage, mass effect or midline shift. 2. Age-related cerebral atrophy with chronic microangiopathic changes. 3. Degree of ventricular dilatation is felt to be out of proportion to the degree of cerebral atrophy. Correlate clinically for normal pressure hydrocephalus. 4. 3.5 x 2.3 cm posterior cranial fossa arachnoid cyst. Head Injury: No Hospitalizations: Yes Surgeries: Yes (see above) Family Medical/Psychiatric HX Medical Problems noncontributory Mother: , heart disease Father: , COPD Siblings: One brother , CLOTILDE Children: 4 Alive, well Unexpected deaths due to medical reasons: None. Addiction History denies Social History Early Relations/development: raised by both parents as an only child after younger brother killed by a car, no family concerns raised. Sibling order: oldest Paternal relationships: good Education: 1 year of College, [employer] Occupational: medical aid now retired Legal: denies Martial: over 40 years. Economic: no concerns. Supports: , children Abuse/trauma: denies Mental Status Examination General Appearance: unkempt, appears stated age, hospital scubs/clothing, other (in bed, walks with walking) Build: average Demeanor: preoccupied, other (confused) Eye Contact: fair Activity: slowed Behavior: cooperative, other (confused) Speech: slurred, rapid, low in volume, other (unintelligible) Mood: anxious Mood "I can't stop shaking." Affect: inappropriate, anxious, disorganized Thought Process: incoherent, loose, associative, flight of ideas, derailment Thought Content (Delusions): other (AH of people, names one being an "annoying gal", denies SI/HI, and VH) Thought Content (Other): preoccupied, ideas of reference, internal-stimuli, unable to elaborate Thought Content (Aggressive): none reported Perception (Hallucinations): auditory Perception (Other): none reported Cognition (Impairment of): memory, attention/concentration, ability to abstract Cognition(Intelligence Est.): other (unable to assess) Oriented: Awake, Alert Insight: poor Judgment: Poor Psychosis: Associations, Abstract Thinking, Psychotic Perceptions Diagnoses Paranoid Schizophrenia R/O cognitive d/o - vascular dementia A-FIB/CHADSVASC A-FIB History Current/History of A-Fib/PAF?: No Current PO Anticoag Therapy: No Age/Risk Factor Scoring CHADSVASC: CHADSVASC Response (Comments) Value Age Risk Factor Age >/= 75 years old 2 Gender Risk Factor Female 1 Hx of HTN Yes 1 Total 4 Treatment Treatment ordered: NONE Reason Anticoagulant not given: Not indicated/[id number] Assessment Pt seen with returned case inspector mumbling unintelligibly but states she can't remember why she's here but states "my must have brought me." Pt mumbling rapidly and unintelligibly, appearing confused and disorganized. Walks with a walking so therefore remains in her room in bed mostly (med giving lovenox to prevent blood clots) as needs help with ambulation even when using her walker. Appears to be responding to AH that she does not particularly deny. She is a very poor historian. Will start low dose seroquel for psychosis and monitor tolerance and effect. Initial Treatment Plan 1. Patient was admitted on a status. 2. Complete history was obtained. 3. With patients permission, family will be contacted and database will be ex panded. 4. Patients medication regimen will be reviewed and changed accordingly. 5. Patient will be provided with protected environment. 6. Patient will be treated with individual, group, and milieu therapies. 7. Patient will receive supportive psych-education. 8. Discharge planning will commence immediately. 9. Outpatient follow-up treatment will be strongly recommended. 10. The initial treatment plan will focus initially on: * Depression. * Risk for suicide. * Substance abuse. 11. MRI brain w/o contrast to assess for dementia possibility 12. seroquel 12.5mg bid ESTIMATED LENGTH OF STAY: 5-7 DAYS. TIME SPENT COUNSELING AND COORDINATING INITIAL CARE: 60 minutes. Vital Signs Vital Signs Date Time Temp Pulse Resp B/P (MAP) Pulse Ox O2 Delivery O2 Flow Rate FiO2 03/15/19 09:52 132/69 03/15/19 06:35 97.9 64 18 03/14/19 20:33 96 03/14/19 16:22 Room Air Laboratory Data 24H Labs Laboratory Tests 2 03/15/19 08:38: Anion Gap -7L, Glomerular Filtration Rate > 60.0, Blood Urea Nitrogen 14#, Creatinine 0.83, Sodium Level 138, Potassium Level 3.3L, Chloride Level 116H, Carbon Dioxide Level 29, Calcium Level 9.4, Aspartate Amino Transf (AST/SGOT) 23, Alanine Aminotransferase (ALT/SGPT) 79H, Alkaline Phosphatase 271H, Total Bilirubin 0.7, Total Protein 6.0L, Albumin 3.5, Ammonia 21, Albumin/Globulin Ratio 1.40 CBC/BMP Laboratory Tests 03/15/19 08:38 Calcium Level 9.4, Aspartate Amino Transf (AST/SGOT) 23, Alanine Aminotransferase (ALT/SGPT) 79 H, Alkaline Phosphatase 271 H, Total Bilirubin 0.7, Total Protein 6.0 L, Albumin 3.5 Medications Scheduled Calcium/Magnesium/Zinc (Idmtbqc-Tdztehasg-Poau Tablet) 1 Each Tablet, 1 TAB PO DAILY, (Reported) Cholecalciferol (Vitamin D3) (Vitamin D3) 2,000 Unit Capsule, 2,000 UNIT PO DAILY, (Reported) Ferrous Sulfate (Iron) 325 Mg Tablet, 325 MG PO DAILY, (Reported) Omeprazole (Omeprazole) 10 Mg Capsule.dr, 10 MG PO DAILY, (Reported) Scheduled PRN Acetaminophen (Tylenol Extra Strength) 500 Mg Tablet, 1,000 MG PO TID PRN for PAIN, (Reported) Miscellaneous Medications [Patient Comment] , (Reported) PATIENT'S STATES THE PATIENT IS SUPPOSED TO BE TAKING LISINOPRIL 10MG DAILY (LAST FILLED 07/20/18 FOR 90 DAYS) AND CITALOPRAM 20MG DAILY (LAST FILLED 10/11/18 FOR 30 DAYS) BUT HAS NOT TAKEN IN ABOUT 6 MONTHS DUE TO REFUSAL TO GO TO PCP FOR APPOINTMENT Allergies Coded Allergies: No Known Allergies (Unverified , 06/17/17) LUBA CHANCE DO Mar 15, 2019 11:55 am
[2019-03-15] MEDS ORDERED: QUEtiapine FUMARATE 12.5 MG HALF-TAB PO ONE (12:00)
[2019-03-15 18:00] VITALS: BP 104/62
[2019-03-15 20:14] VITALS: BP 132/69
[2019-03-15] MEDS: OLANZapine ORAL DISINTEGRATING TAB 5MG PO PRN (21:51)
[2019-03-15] MEDS: QUEtiapine FUMARATE 12.5 MG HALF-TAB PO SCH (21:51)
[2019-03-16 06:41] VITALS: BP 129/74
[2019-03-16 06:56] LABS: HEMATOCRIT 37.5 % (36.0-47.0); HEMOGLOBIN 12.4 g/dl (12.0-15.5); MEAN CORPUSCULAR HEMOGLOBIN 31.2 pg (27.0-33.0); MEAN CORPUSCULAR HGB CONC 33.1 g/dl (32.0-36.5); MEAN CORPUSCULAR VOLUME 94.2 fl (80.0-96.0); PLATELET COUNT, AUTOMATED 174 10^3/uL (150-450); RED BLOOD COUNT 3.98 10^6/uL (4.00-5.40); WHITE BLOOD COUNT 6.4 10^3/uL (4.0-10.0)
[2019-03-16 07:24] LABS: ALBUMIN 3.4 GM/DL (3.2-5.2); ALT/SGPT 67 U/L (12-78); BILIRUBIN,TOTAL 0.5 MG/DL (0.2-1.0); BLOOD UREA NITROGEN 24 MG/DL (7-18); CALCIUM LEVEL 9.4 MG/DL (8.8-10.2); CARBON DIOXIDE LEVEL 27 MEQ/L (21-32); CHLORIDE LEVEL 112 MEQ/L (98-107); CREATININE FOR GFR 0.76 MG/DL (0.55-1.30); GLOMERULAR FILTRATION RATE > 60.0 (>39); GLUCOSE, FASTING 94 MG/DL (70-100); POTASSIUM SERUM 4.3 MEQ/L (3.5-5.1); SODIUM LEVEL 145 MEQ/L (136-145); TOTAL PROTEIN 5.9 GM/DL (6.4-8.2)
--- NOTE | 2019-03-16 07:58 | IPNPDOC ---
Text Note Date of Service The patient was seen on 03/16/19. NOTE Deloris Gonsales is 73 -year-old female who was brought in by her in a co nfused state, and admitted to inpatient mental health on account of acute psychosis, insomnia delirium, with auditory hallucinations. On admit laboratory value was abnormal for potassium level of 2.9. Patient is unable to provide any history. Subjective: Patient is very sleepy this morning. Last night reported she fell and this morning is requiring a sitter. Other physical findings GENERAL: Frail-appearing elderly female in no acute distress. SKIN : Warm, dry intact, bilateral lower extremity discoloration HEENT: Atraumatic, normocephalic, PERRL, moist mucous membrane CARDIOVASCULAR: Regular rate and rhythm, S1S2, no JVD, no edema, distal pulses + and palpable RESP: CTAB, no accessory muscle use noted ABDOMEN: BS+ non distended non tender MS: no joint deformities NEURO: Alert and oriented x 1, CN2-12 grossly intact PSYCH: no anxiety or agitation Assessment/Plan Hypertension -continue lisinopril 5 mg daily -Blood pressure monitoring per unit protocol Hyperlipidemia -Continue statin therapy Hypokalemia -Repleted -Normalized -monitor to keep greater than 4 DVT prophylaxis -Lovenox 40 mg daily Acute psychosis -Management by primary team Ruddy DUMONT I+O Ruddy DUMONT I+O Laboratory Tests 03/15/19 08:38 Calcium Level 9.4, Aspartate Amino Transf (AST/SGOT) 23, Alanine Aminotransferase (ALT/SGPT) 79 H, Alkaline Phosphatase 271 H, Total Bilirubin 0.7, Total Protein 6.0 L, Albumin 3.5 03/16/19 06:28 Calcium Level 9.4, Aspartate Amino Transf (AST/SGOT) 28, Alanine Aminotransferase (ALT/SGPT) 67, Alkaline Phosphatase 270 H, Total Bilirubin 0.5, Total Protein 5.9 L, Albumin 3.4, Red Blood Count 3.98 L, Mean Corpuscular Volume 94.2, Mean Corpuscular Hemoglobin 31.2, Mean Corpuscular Hemoglobin Concent 33.1, Red Cell Distribution Width 13.4 Vital Signs Date Time Temp Pulse Resp B/P (MAP) Pulse Ox O2 Delivery O2 Flow Rate FiO2 03/16/19 06:41 99.0 80 14 129/74 (92) 03/15/19 20:14 96 03/14/19 16:22 Room Air JOSE ROBERTO DUONG [facility] Mar 16, 2019 07:58
[2019-03-16] MEDS: QUEtiapine FUMARATE 12.5 MG HALF-TAB PO SCH (09:06)
[2019-03-16] MEDS: ENOXAPARIN 40 MG/0.4 ML SYRINGE (J1650) SC SCH (09:06)
[2019-03-16] MEDS: FERROUS SULFATE 325MG TAB PO SCH (09:06)
[2019-03-16] MEDS: LISINOPRIL 5 MG TAB PO SCH (09:14)
--- NOTE | 2019-03-16 10:11 | MHIPNPDOC ---
[facility] Progress Note Progress Note DATE OF SERVICE: 03/16/19 HISTORY: Patient is a 73 -year-old , female, with a history of schizophrenia and not in any current outpatient psych treatment for years who was brought in under 9.41 made by due to pt no sleeping, eating, having AH causing her to be in a continuous dialog with people that aren't there, not care for herself, and refusing to go to medical appts per in ED. In ED pt appeared disheveled, disorganized, and distracted by AH off a "vee that annoy's me... a nuance kind of person that is frustrating all the time" and preoccupied with her being able to take her to outpatient appts unable to focus or understand that she is being admitted to [facility]. Pt is a poor historian so history gathered from previous records. VITAL SIGNS: See below. NEW TEST RESULTS: Head CT w/o contrast on admission: Highly business services sales representative of dementia as has atrophy and chronic microangiopathic changes, venatical dilation IMPRESSION: 1. No CT evidence of intracranial hemorrhage, mass effect or midline shift. 2. Age-related cerebral atrophy with chronic microangiopathic changes. 3. Degree of ventricular dilatation is felt to be out of proportion to the degree of cerebral atrophy. Correlate clinically for normal pressure hydrocephalus. 4. 3.5 x 2.3 cm posterior cranial fossa arachnoid cyst. CURRENT MEDICATIONS: See below. MENTAL STATUS EXAMINATION: General Appearance: unkempt, appears stated age, hospital scubs/clothing, other (in bed, walks with walking) Build: average Demeanor: less preoccupied, less confused Eye Contact: fair Activity: slowed Behavior: cooperative, less confused Speech: low in volume, mumbles at times, less unintelligible Mood: anxious, confused Mood "I"m tired all the time." Affect: anxious and confused Thought Process: more coherent and logical today Thought Content (Delusions): denies SI/HI, AVH today Thought Content (Other): less preoccupied and denies ideas of reference, internal-stimuli Thought Content (Aggressive): none reported Perception (Hallucinations): auditory Perception (Other): none reported Cognition (Impairment of): memory, attention/concentration, ability to abstract Cognition(Intelligence Est.): other (unable to assess) Oriented: Awake, Alert Insight: poor as pt is demented Judgment: Poor as pt is demented Psychosis: none reported DIAGNOSES: 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 pt eating little on unit and appears to need encouragement and reminding to do so on the unit by nursing staff. Did drink her ensure this morning but doesn't not want to eat her cereal b/c she doesn't like cheerios. States she feels "sleepy all the time" most likely due to seroquel and will change to nightly dosing only. Slightly less confused today all though did know exactly who I was and had to remind her. She is aware she's in a hospital. Continues to endorse tremors that make it difficult to eat at times. Will start amantidine for tremors and dementia. MANAGEMENT PLAN: continue plan, encourage eating seroquel 25mg qhs amantidine 100mg tid TIME SPENT: 30 minutes. Vital Signs Vital Signs Date Time Temp Pulse Resp B/P (MAP) Pulse Ox O2 Delivery O2 Flow Rate FiO2 03/16/19 09:14 121/70 03/16/19 06:41 99.0 80 14 03/15/19 20:14 96 03/14/19 16:22 Room Air Laboratory Data 24H Labs Laboratory Tests 2 03/16/19 06:28: Nucleated Red Blood Cells % (auto) 0.0, Anion Gap 6L, Glomerular Filtration Rate > 60.0, Blood Urea Nitrogen 24#H, Creatinine 0.76, Sodium Level 145#, Potassium Level 4.3#, Chloride Level 112H, Carbon Dioxide Level 27, Calcium Level 9.4, Aspartate Amino Transf (AST/SGOT) 28, Alanine Aminotransferase (ALT/SGPT) 67, Alkaline Phosphatase 270H, Total Bilirubin 0.5, Total Protein 5.9L, Albumin 3.4, Albumin/Globulin Ratio 1.36 CBC/BMP Laboratory Tests 03/16/19 06:28 Red Blood Count 3.98 L, Mean Corpuscular Volume 94.2, Mean Corpuscular Hemoglobin 31.2, Mean Corpuscular Hemoglobin Concent 33.1, Red Cell Distribution Width 13.4, Calcium Level 9.4, Aspartate Amino Transf (AST/SGOT) 28, Alanine Aminotransferase (ALT/SGPT) 67, Alkaline Phosphatase 270 H, Total Bilirubin 0.5, Total Protein 5.9 L, Albumin 3.4 Current Medications Current Medications Acetaminophen (Tylenol Tab) 1,000 mg TID PRN PO PAIN; Start 03/14/19 at 15:15 Enoxaparin Sodium (Lovenox) 40 mg DAILY SC Last administered on 03/16/19 09:06; Start 03/15/19 at 09:00 Enoxaparin Sodium (Lovenox) 40 mg Q12H SC ; Start 03/15/19 at 10:45; Stop 03/15/19 at 11:00; Status DC Ferrous Sulfate (Ferrous Sulfate) 325 mg DAILY PO Last administered on 03/16/19 09:06; Start 03/15/19 at 09:00 Home Med (Med Rec Complete!) ASDIRECTED XX ; Start 03/14/19 at 09:15; Stop 03/14/19 at 09:15; Status DC Lisinopril (Prinivil) 5 mg DAILY PO Last administered on 03/16/19at 09:14; Start 03/15/19 at 09:00 Magnesium Hydroxide (Milk Of Magnesia) 30 ml DAILYPRN PRN PO CONSTIPATION; Start 03/14/19 at 15:15 Olanzapine (ZyPREXA ZYDIS) 5 mg Q4HP PRN PO AGITATION Last administered on 03/15/19 21:51; Start 03/14/19 at 15:15 Potassium Chloride (Micro-K Extencaps) 40 meq BID PO Last administered on 03/15/19at 21:51; Start 03/15/19 at 09:00; Stop 03/15/19 at 21:01; Status DC Quetiapine Fumarate (SEROquel) 12.5 mg BID PO Last administered on 03/16/19 09:06; Start 03/15/19 at 21:00 Allergies Coded Allergies: No Known Allergies (Unverified , 06/17/17) LUBA CHANCE DO Mar 16, 2019 9:29 am
[2019-03-16 18:00] VITALS: BP 133/75
[2019-03-16] MEDS ORDERED: QUEtiapine FUMARATE 25 MG TAB PO SCH (21:00)
[2019-03-17 06:45] VITALS: BP 126/62
--- NOTE | 2019-03-17 08:38 | IPNPDOC ---
Text Note Date of Service The patient was seen on 03/17/19. NOTE Summary: Patient is a 73 -year-old female who was brought in by her in a confused state, and admitted to inpatient mental health on account of acute psychosis, insomnia delirium, with auditory hallucinations. On admit laboratory value was abnormal for potassium level of 2.9. Subjective: Patient reports feeling very tired this morning. Sitter at bedside, no overnight events OBJECTIVE GENERAL: Frail-appearing elderly female in no acute distress. SKIN : Warm, dry intact, bilateral lower extremity discoloration HEENT: Atraumatic, normocephalic, PERRL, moist mucous membrane CARDIOVASCULAR: Regular rate and rhythm, S1S2, no JVD, no edema, distal pulses + and palpable RESP: CTAB, no accessory muscle use noted ABDOMEN: BS+ non distended non tender MS: no joint deformities NEURO: Alert and oriented x 1, CN2-12 grossly intact PSYCH: no anxiety or agitation Assessment/Plan Hypertension -continued on lisinopril 5 mg daily -Blood pressure monitoring per unit protocol UTI -urine culture positive for P. Klebsiella -was prescribed one time dose bactrim by admitting provider -start on Vantin for total of 5 days. Hyperlipidemia -Continue statin therapy Hypokalemia -Repleted and currently normalized -monitor to keep greater than 4 DVT prophylaxis -Lovenox 40 mg daily Acute psychosis -Management by primary team VS,Ruddy, I+O VSRdudy, I+O Vital Signs Date Time Temp Pulse Resp B/P (MAP) Pulse Ox O2 Delivery O2 Flow Rate FiO2 03/17/19 06:45 98.8 73 14 126/62 (83) 03/16/19 18:00 96 03/16/19 14:57 Room Air JOSE ROBERTO DUONGP Mar 17, 2019 08:38
--- NOTE | 2019-03-17 09:10 | MHIPNPDOC ---
[facility] Progress Note Progress Note DATE OF SERVICE: 03/17/19 HISTORY: Patient is a 73 -year-old , female, with a history of schizophrenia and not in any current outpatient psych treatment for years who was brought in under 9.41 made by due to pt no sleeping, eating, having AH causing her to be in a continuous dialog with people that aren't there, not care for herself, and refusing to go to medical appts per in ED. In ED pt appeared disheveled, disorganized, and distracted by AH off a "vee that annoy's me... a nuance kind of person that is frustrating all the time" and preoccupied with her being able to take her to outpatient appts unable to focus or understand that she is being admitted to [facility]. Pt is a poor historian so history gathered from previous records. VITAL SIGNS: See below. NEW TEST RESULTS: Head CT w/o contrast on admission: Highly pharmacy services representative of dementia as has atrophy and chronic microangiopathic changes, venatical dilation IMPRESSION: 1. No CT evidence of intracranial hemorrhage, mass effect or midline shift. 2. Age-related cerebral atrophy with chronic microangiopathic changes. 3. Degree of ventricular dilatation is felt to be out of proportion to the degree of cerebral atrophy. Correlate clinically for normal pressure hydrocephalus. 4. 3.5 x 2.3 cm posterior cranial fossa arachnoid cyst. CURRENT MEDICATIONS: See below. MENTAL STATUS EXAMINATION: General Appearance: unkempt, appears stated age, hospital scrubs/clothing, other (in bed, walks with walking) Build: average Demeanor: confused Eye Contact: fair Activity: slowed Behavior: withdrawn confused Speech: low in volume, mumbles, unintelligible Mood: confused Mood mumbling unintelligibly Affect: disorganized and confused Thought Process: incoherent and confused today Thought Content (Delusions): denies SI/HI, AVH today Thought Content (Other): less preoccupied and denies ideas of reference, international account representative al-stimuli Thought Content (Aggressive): none reported Perception (Hallucinations): auditory Perception (Other): none reported Cognition (Impairment of): memory, attention/concentration, ability to abstract Cognition(Intelligence Est.): other (unable to assess) Oriented: Awake, not oriented Insight: poor as pt is demented Judgment: Poor as pt is demented Psychosis: none reported DIAGNOSES: 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 Per staff during treatment team pt has had 10lb wt lose over a few months due to lack of eating per pt's that is most likely secondary to pt having moderate to severe dementia. Pt continues to eat little on unit and appears to need encouragement and reminding to do so on the unit by nursing staff. Did drink her ensure this morning but doesn't not want to eat her cereal b/c she doesn't like cheerios. Pt more less confused today and mumbling something that didn't make seen after seroquel changed to only nightly so will change back to 12.5mg bid as was better and more oriented. Continues to have tremors and amatindine started but med is pending, appears to need inderal and vital stable to give. MANAGEMENT PLAN: continue plan, encourage eating. change seroquel, start inderal for tremors and cogentin for eps seroquel 12.5mg bid amantidine 100mg tid - pending inderal 10mg tid cogentin 0.5mg bid TIME SPENT: 30 minutes. Vital Signs Vital Signs Date Time Temp Pulse Resp B/P (MAP) Pulse Ox O2 Delivery O2 Flow Rate FiO2 03/17/19 06:45 98.8 73 14 126/62 (83) 03/16/19 18:00 96 03/16/19 14:57 Room Air Current Medications Current Medications Acetaminophen (Tylenol Tab) 1,000 mg TID PRN PO PAIN; Start 03/14/19 at 15:15 Amantadine HCl (Symmetrel) 100 mg TID PO ; Start 03/16/19 at 09:00; Status UNV Cefdinir (Omnicef) 300 mg BID PO ; Start 03/17/19 at 09:00; Stop 03/22/19 at 08:59 Enoxaparin Sodium (Lovenox) 40 mg DAILY SC Last administered on 03/16/19at 09:06; Start 03/15/19 at 09:00 Enoxaparin Sodium (Lovenox) 40 mg Q12H SC ; Start 03/15/19 at 10:45; Stop 03/15/19 at 11:00; Status DC Ferrous Sulfate (Ferrous Sulfate) 325 mg DAILY PO Last administered on 03/16/19at 09:06; Start 03/15/19 at 09:00 Home Med (Med Rec Complete!) ASDIRECTED XX ; Start 03/14/19 at 09:15; Stop 03/14/19 at 09:15; Status DC Lisinopril (Prinivil) 5 mg DAILY PO Last administered on 03/16/19at 09:14; Start 03/15/19 at 09:00 Magnesium Hydroxide (Milk Of Magnesia) 30 ml DAILYPRN PRN PO CONSTIPATION; Start 03/14/19 at 15:15 Miscellaneous (Unresolved Clarification Entry) SEE LABEL COMMENTS DAILY XX ; Start 03/16/19 at 09:00 Olanzapine (ZyPREXA ZYDIS) 5 mg Q4HP PRN PO AGITATION Last administered on 03/15/19at 21:51; Start 03/14/19 at 15:15 Potassium Chloride (Micro-K Extencaps) 40 meq BID PO Last administered on 03/15/19at 21:51; Start 03/15/19 at 09:00; Stop 03/15/19 at 21:01; Status DC Quetiapine Fumarate (SEROquel) 12.5 mg BID PO Last administered on 03/16/19at 09:06; Start 03/15/19 at 21:00; Stop 03/16/19 at 10:11; Status DC Quetiapine Fumarate (SEROquel) 25 mg QHS PO Last administered on 03/16/19at 21:53; Start 03/16/19 at 21:00 Allergies Coded Allergies: No Known Allergies (Unverified , 06/17/17) LUBA CHANCE DO Mar 17, 2019 9:10 am
[2019-03-17] MEDS ORDERED: PROPRANOLOL 10 MG TAB PO ONE (10:00)
[2019-03-17] MEDS ORDERED: AMANTADINE 100 MG CAP PO ONE ×2 (10:00→12:00)
[2019-03-17] MEDS ORDERED: BENZTROPINE 0.5 MG TAB PO ONE (10:00)
[2019-03-17] MEDS ORDERED: QUEtiapine FUMARATE 12.5 MG HALF-TAB PO ONE (10:00)
[2019-03-17] MEDS: ENOXAPARIN 40 MG/0.4 ML SYRINGE (J1650) SC SCH (10:12)
[2019-03-17] MEDS: FERROUS SULFATE 325MG TAB PO SCH (10:13)
[2019-03-17] MEDS: CEFDINIR 300 MG CAP (OMNICEF) PO SCH ×2 (10:14→20:01)
[2019-03-17] MEDS: LISINOPRIL 5 MG TAB PO SCH (10:15)
[2019-03-17] MEDS: PROPRANOLOL 10 MG TAB PO SCH ×2 (16:09→20:01)
[2019-03-17 18:00] VITALS: BP 126/58
[2019-03-17] MEDS: OLANZapine ORAL DISINTEGRATING TAB 5MG PO PRN (20:01)
[2019-03-17] MEDS ORDERED: QUEtiapine FUMARATE 12.5 MG HALF-TAB PO SCH (21:00)
[2019-03-17] MEDS: ACETAMINOPHEN 500 MG TAB PO PRN (22:34)
[2019-03-18] MEDS ORDERED: OLANZapine ORAL DISINTEGRATING TAB 5MG PO ONE (01:00)
[2019-03-18 07:03] VITALS: BP 148/86
[2019-03-18 07:08] LABS: HEMATOCRIT 42.6 % (36.0-47.0); HEMOGLOBIN 14.2 g/dl (12.0-15.5); MEAN CORPUSCULAR HEMOGLOBIN 32.3 pg (27.0-33.0); MEAN CORPUSCULAR HGB CONC 33.3 g/dl (32.0-36.5); MEAN CORPUSCULAR VOLUME 96.8 fl (80.0-96.0); PLATELET COUNT, AUTOMATED 181 10^3/uL (150-450); WHITE BLOOD COUNT 4.6 10^3/uL (4.0-10.0)
[2019-03-18 07:38] LABS: ALBUMIN 3.8 GM/DL (3.2-5.2); ALT/SGPT 428 U/L (12-78); BILIRUBIN,TOTAL 1.4 MG/DL (0.2-1.0); BLOOD UREA NITROGEN 18 MG/DL (7-18); CALCIUM LEVEL 9.5 MG/DL (8.8-10.2); CARBON DIOXIDE LEVEL 27 MEQ/L (21-32); CHLORIDE LEVEL 108 MEQ/L (98-107); CREATININE FOR GFR 0.81 MG/DL (0.55-1.30); GLOMERULAR FILTRATION RATE > 60.0 (>39); GLUCOSE, FASTING 87 MG/DL (70-100); MAGNESIUM LEVEL 2.2 MG/DL (1.8-2.4); POTASSIUM SERUM 4.4 MEQ/L (3.5-5.1); SODIUM LEVEL 141 MEQ/L (136-145); TOTAL PROTEIN 6.9 GM/DL (6.4-8.2)
--- NOTE | 2019-03-18 08:38 | IPNPDOC ---
Text Note Date of Service The patient was seen on 03/18/19. NOTE Subjective: Seen at bedside, eating breakfast, complains of low back pain but o therwise feels okay. Objective GENERAL: Frail-appearing elderly female in no acute distress. SKIN : Warm, dry intact, bilateral lower extremity discoloration HEENT: Atraumatic, normocephalic, PERRL, moist mucous membrane CARDIOVASCULAR: Regular rate and rhythm, S1S2, no JVD, no edema, distal pulses + and palpable RESP: CTAB, no accessory muscle use noted ABDOMEN: BS+ non distended non tender MS: no joint deformities NEURO: Alert and oriented x 1, CN2-12 grossly intact PSYCH: no anxiety or agitation Assessment/Plan Hypertension -Blood pressure currently controlled -continue lisinopril 5 mg daily -Blood pressure monitoring per unit protocol Hypokalemia -Repleted and now normalized -monitor to keep greater than 4 Elevated liver enzymes -Etiology unclear -Dramatic increase from admitting levels -Check liver ultrasound, Seroquel has been discontinued by primary team for now, also check hepatitis panel. DVT prophylaxis -Lovenox 40 mg daily Acute psychosis -Management by primary team Ruddy DUMONT, I+O VSRuddy I+O Laboratory Tests 03/18/19 06:27 Red Blood Count 4.40, Mean Corpuscular Volume 96.8 H, Mean Corpuscular Hemoglobin 32.3, Mean Corpuscular Hemoglobin Concent 33.3, Red Cell Distribution Width 12.9, Calcium Level 9.5, Aspartate Amino Transf (AST/SGOT) 698 H, Alanine Aminotransferase (ALT/SGPT) 428 H, Alkaline Phosphatase 439 H, Total Bilirubin 1.4 #H, Total Protein 6.9, Albumin 3.8 Vital Signs Date Time Temp Pulse Resp B/P (MAP) Pulse Ox O2 Delivery O2 Flow Rate FiO2 03/18/19 07:03 97.8 56 14 148/86 (106) 03/16/19 18:00 96 03/16/19 14:57 Room Air JOSE ROBERTO DUONG [facility] Mar 18, 2019 08:38
[2019-03-18] MEDS ORDERED: BENZTROPINE 0.5 MG TAB PO SCH (09:00)
--- NOTE | 2019-03-18 09:25 | MHIPNPDOC ---
[facility] Progress Note Progress Note DATE OF SERVICE: 03/18/19 HISTORY: Patient is a 73 -year-old , female, with a history of schizophrenia and not in any current outpatient psych treatment for years who was brought in under 9.41 made by due to pt no sleeping, eating, having AH causing her to be in a continuous dialog with people that aren't there, not care for herself, and refusing to go to medical appts per in ED. In ED pt appeared disheveled, disorganized, and distracted by AH off a "vee that annoy's me... a nuance kind of person that is frustrating all the time" and preoccupied with her being able to take her to outpatient appts unable to focus or understand that she is being admitted to [facility]. Pt is a poor historian so history gathered from previous records. VITAL SIGNS: Aspartate Amino Transf (AST/SGOT) 698H, Alanine Aminotransferase (ALT/SGPT) 428H, Alkaline Phosphatase 439H, Total Bilirubin 1.4#H. Medical provider to recheck labs and get liver U/S and hepatitis screening NEW TEST RESULTS: Head CT w/o contrast on admission: Highly branch customer service representative of dementia as has atrophy and chronic microangiopathic changes, venatical dilation IMPRESSION: 1. No CT evidence of intracranial hemorrhage, mass effect or midline shift. 2. Age-related cerebral atrophy with chronic microangiopathic changes. 3. Degree of ventricular dilatation is felt to be out of proportion to the degree of cerebral atrophy. Correlate clinically for normal pressure hydrocephalus. 4. 3.5 x 2.3 cm posterior cranial fossa arachnoid cyst. CURRENT MEDICATIONS: See below. MENTAL STATUS EXAMINATION: General Appearance: unkempt, appears stated age, hospital scrubs/clothing, out of bed walking milieu with walking with staff Build: average Demeanor: confused Eye Contact: fair Activity: slowed Behavior: withdrawn confused Speech: low in volume, mumbles, unintelligible Mood: confused Mood mumbling unintelligibly Affect: disorganized and confused Thought Process: incoherent and confused today Thought Content (Delusions): denies SI/HI, AVH today Thought Content (Other): less preoccupied and denies ideas of reference, internal-stimuli Thought Content (Aggressive): none reported Perception (Hallucinations): auditory Perception (Other): none reported Cognition (Impairment of): memory, attention/concentration, ability to abstract Cognition(Intelligence Est.): other (unable to assess) Oriented: Awake, not oriented Insight: poor as pt is demented Judgment: Poor as pt is demented Psychosis: none reported DIAGNOSES: 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 Called by staff for pt not sleeping during the night and given one time dose zyprexa zydis 5mg qhs and pt slept. AST/ALT extremely elevated since admission and I do not fully believe antipsychotic related but discontinued seroquel regardlessly. Spoke with med provider regarding liver enzymes and possible causes and med provider will order liver U/S and hepatitis screening to assess pt liver structure and possible causes of elevation in enzymes. Per staff during treatment team pt has had 10lb wt lose over a few months due to lack of eating per pt's that is most likely secondary to pt having moderate to severe dementia. Staff getting getting pt out of bed, assisting pt with ambulation on unit, sitting in chair to eat tid and pt appears better due to assistance walking the unit with walker with staff. She continues to be confused and mumbling something when seen. She is tolerating inderal and amantidine with improved tremors today. MANAGEMENT PLAN: continue plan, encourage eating. d/c seroquel and congentin amantidine 100mg bid inderal 10mg tid TIME SPENT: 30 minutes. Vital Signs Vital Signs Date Time Temp Pulse Resp B/P (MAP) Pulse Ox O2 Delivery O2 Flow Rate FiO2 03/18/19 07:03 97.8 56 14 148/86 (106) 03/16/19 18:00 96 03/16/19 14:57 Room Air Laboratory Data 24H Labs Laboratory Tests 2 03/18/19 06:27: Nucleated Red Blood Cells % (auto) 0.0, Anion Gap 6L, Glomerular Filtration Rate > 60.0, Blood Urea Nitrogen 18, Creatinine 0.81, Sodium Level 141, Potassium Level 4.4, Chloride Level 108H, Carbon Dioxide Level 27, Calcium Level 9.5, Aspartate Amino Transf (AST/SGOT) 698H, Alanine Aminotransferase (ALT/SGPT) 428H, Alkaline Phosphatase 439H, Total Bilirubin 1.4#H, Total Protein 6.9, Albumin 3.8, Magnesium Level 2.2, Albumin/Globulin Ratio 1.23 CBC/BMP Laboratory Tests 03/18/19 06:27 Red Blood Count 4.40, Mean Corpuscular Volume 96.8 H, Mean Corpuscular Hemoglobin 32.3, Mean Corpuscular Hemoglobin Concent 33.3, Red Cell Distribution Width 12.9, Calcium Level 9.5, Aspartate Amino Transf (AST/SGOT) 698 H, Alanine Aminotransferase (ALT/SGPT) 428 H, Alkaline Phosphatase 439 H, Total Bilirubin 1.4 #H, Total Protein 6.9, Albumin 3.8 Current Medications Current Medications Acetaminophen (Tylenol Tab) 1,000 mg TID PRN PO PAIN Last administered on 03/17/19at 22:34; Start 03/14/19 at 15:15 Amantadine HCl (Symmetrel) 100 mg DAILY PO ; Start 03/18/19 at 09:00 Benztropine Mesylate (Cogentin) 0.5 mg DAILY PO ; Start 03/18/19 at 09:00 Cefdinir (Omnicef) 300 mg BID PO Last administered on 03/17/19at 20:01; Start 03/17/19 at 09:00; Stop 03/22/19 at 08:59 Enoxaparin Sodium (Lovenox) 40 mg DAILY SC Last administered on 03/17/19at 10:12; Start 03/15/19 at 09:00 Enoxaparin Sodium (Lovenox) 40 mg Q12H SC ; Start 03/15/19 at 10:45; Stop 03/15/19 at 11:00; Status DC Ferrous Sulfate (Ferrous Sulfate) 325 mg DAILY PO Last administered on 03/17/19at 10:13; Start 03/15/19 at 09:00 Home Med (Med Rec Complete!) ASDIRECTED XX ; Start 03/14/19 at 09:15; Stop 03/14/19 at 09:15; Status DC Lisinopril (Prinivil) 5 mg DAILY PO Last administered on 03/17/19at 10:15; Start 03/15/19 at 09:00 Magnesium Hydroxide (Milk Of Magnesia) 30 ml DAILYPRN PRN PO CONSTIPATION; Start 03/14/19 at 15:15 Miscellaneous (Unresolved Clarification Entry) SEE LABEL COMMENTS DAILY XX ; Start 03/16/19 at 09:00; Stop 03/18/19 at 08:23; Status DC Olanzapine (ZyPREXA ZYDIS) 5 mg Q4HP PRN PO AGITATION Last administered on 03/17/19at 20:01; Start 03/14/19 at 15:15 Potassium Chloride (Micro-K Extencaps) 40 meq BID PO Last administered on 03/15/19at 21:51; Start 03/15/19 at 09:00; Stop 03/15/19 at 21:01; Status DC Propranolol HCl (Inderal) 10 mg TID PO Last administered on 03/17/19at 20:01; Start 03/17/19 at 16:00 Quetiapine Fumarate (SEROquel) 12.5 mg BID PO Last administered on 03/17/19at 20:01; Start 03/17/19 at 21:00; Stop 03/18/19 at 08:22; Status DC Quetiapine Fumarate (SEROquel) 12.5 mg BID PO Last administered on 03/16/19at 09:06; Start 03/15/19 at 21:00; Stop 03/16/19 at 10:11; Status DC Quetiapine Fumarate (SEROquel) 25 mg QHS PO Last administered on 03/16/19at 21:53; Start 03/16/19 at 21:00; Stop 03/17/19 at 09:09; Status DC Allergies Coded Allergies: No Known Allergies (Unverified , 06/17/17) LUBA CHANCE DO Mar 18, 2019 9:25 am
[2019-03-18] MEDS: AMANTADINE 100 MG CAP PO SCH (09:41)
[2019-03-18] MEDS: FERROUS SULFATE 325MG TAB PO SCH (09:41)
[2019-03-18] MEDS: ENOXAPARIN 40 MG/0.4 ML SYRINGE (J1650) SC SCH (09:41)
[2019-03-18] MEDS: PROPRANOLOL 10 MG TAB PO SCH ×3 (09:42→20:27)
[2019-03-18] MEDS: CEFDINIR 300 MG CAP (OMNICEF) PO SCH ×2 (09:42→20:27)
[2019-03-18] MEDS: LISINOPRIL 5 MG TAB PO SCH (09:58)
[2019-03-18 11:50] LABS: HEPATITIS B SURFACE ANTIGEN NEGATIVE (NEGATIVE)
[2019-03-18 12:16] LABS: HEPATITIS C VIRUS ABY INDEX 0.1 INDEX (<0.8)
[2019-03-18 12:17] LABS: HEPATITIS B CORE ANTIBODY IGM NEGATIVE (NEGATIVE)
[2019-03-18 12:19] LABS: HEPATITIS A ANTIBODY IGM NEGATIVE (NEGATIVE)
--- NOTE | 2019-03-18 16:16 | REP ---
Right upper quadrant sonography: History: Elevated liver enzymes. The patient was not certain whether she had her gallbladder removed. Findings: Exam quality is significantly inhibited by patient's inability to fully cooperate and limited scan windows. She was unable to breath hold. Limited visualization of the liver shows no focal liver lesion. Common bile duct is 0.7 centimeters in diameter. No intrahepatic ductal dilation is observed. The pancreas is obscured by abdominal gas. No right renal abnormality is seen. Right kidney measures 10.1 x 4.0 x 2.9 cm. In the approximate location of the gallbladder there was a complex structure containing echogenic material however this appeared to peristalsing and may well be a bowel loop. Otherwise, the gallbladder was not visualized. Impression: Significantly limited exam quality. Uncertain whether the gallbladder was visualized. CBD 0.7 cm. No ascites or right renal abnormality seen. Electronically Signed by Orlando Pérez MD 03/18/2019 08:21 P
[2019-03-18 18:14] VITALS: BP 120/80
[2019-03-18] MEDS: ACETAMINOPHEN 500 MG TAB PO PRN (20:27)
[2019-03-18] MEDS: OLANZapine ORAL DISINTEGRATING TAB 5MG PO PRN (20:28)
[2019-03-19 06:55] VITALS: BP 133/71
[2019-03-19 08:16] LABS: HEMATOCRIT 37.6 % (36.0-47.0); HEMOGLOBIN 12.7 g/dl (12.0-15.5); MEAN CORPUSCULAR HEMOGLOBIN 32.6 pg (27.0-33.0); MEAN CORPUSCULAR HGB CONC 33.8 g/dl (32.0-36.5); MEAN CORPUSCULAR VOLUME 96.7 fl (80.0-96.0); PLATELET COUNT, AUTOMATED 155 10^3/uL (150-450); RED BLOOD COUNT 3.89 10^6/uL (4.00-5.40); WHITE BLOOD COUNT 4.5 10^3/uL (4.0-10.0)
[2019-03-19 08:45] LABS: ALBUMIN 3.1 GM/DL (3.2-5.2); ALT/SGPT 282 U/L (12-78); BILIRUBIN,TOTAL 0.6 MG/DL (0.2-1.0); BLOOD UREA NITROGEN 16 MG/DL (7-18); CALCIUM LEVEL 8.8 MG/DL (8.8-10.2); CARBON DIOXIDE LEVEL 29 MEQ/L (21-32); CHLORIDE LEVEL 110 MEQ/L (98-107); CREATININE FOR GFR 0.69 MG/DL (0.55-1.30); GLOMERULAR FILTRATION RATE > 60.0 (>39); GLUCOSE, FASTING 76 MG/DL (70-100); POTASSIUM SERUM 3.8 MEQ/L (3.5-5.1); SODIUM LEVEL 143 MEQ/L (136-145)
[2019-03-19] MEDS: CEFDINIR 300 MG CAP (OMNICEF) PO SCH ×2 (09:21→21:53)
[2019-03-19] MEDS: ENOXAPARIN 40 MG/0.4 ML SYRINGE (J1650) SC SCH (09:21)
[2019-03-19] MEDS: AMANTADINE 100 MG CAP PO SCH (09:22)
[2019-03-19] MEDS: PROPRANOLOL 10 MG TAB PO SCH ×3 (09:22→21:54)
[2019-03-19] MEDS: FERROUS SULFATE 325MG TAB PO SCH (09:22)
[2019-03-19] MEDS: LISINOPRIL 5 MG TAB PO SCH (09:36)
[2019-03-19 18:00] VITALS: BP 126/64
--- NOTE | 2019-03-19 20:42 | IPNPDOC ---
Text Note Date of Service The patient was seen on 03/19/19. NOTE Subjective: Patient seen at bedside sitting up in a chair. She is very anxious and asking about going home. Objective GENERAL: Frail-appearing elderly female in no acute distress. SKIN : Warm, dry intact, bilateral lower extremity discoloration HEENT: Atraumatic, normocephalic, PERRL, moist mucous membrane CARDIOVASCULAR: Regular rate and rhythm, S1S2, no JVD, no edema, distal pulses + and palpable RESP: Clear to auscultation ABDOMEN: Soft, nontender, nondistended, normal bowel tones MS: no joint deformities, no pedal edema NEURO: Alert and oriented x 1, CN2-12 grossly intact, the patient is tremulous PSYCH: Patient is generally calm, she has some anxiety about when she is going home. ASSESSMENT/PLAN: 1. Hypertension--patient continues on lisinopril for blood pressure control. 2. Hypokalemia.--Resolved. 3. Elevated liver enzymes--this is of unclear etiology. It is being attributed to medications. They appear to be resolving, but we need to continue to monitor. Right upper quadrant ultrasound did not reveal any liver pathology. However, it was unclear whether her gallbladder was still present. Hepatitis panel is negative. VS,Fishbone, I+O VS, Fishbone, I+O Laboratory Tests 03/19/19 07:27 Red Blood Count 3.89 L, Mean Corpuscular Volume 96.7 H, Mean Corpuscular Hemoglobin 32.6, Mean Corpuscular Hemoglobin Concent 33.8, Red Cell Distribution Width 13.2, Calcium Level 8.8, Aspartate Amino Transf (AST/SGOT) 186 H, Alanine Aminotransferase (ALT/SGPT) 282 H, Alkaline Phosphatase 311 H, Total Bilirubin 0.6 #, Total Protein 6.0 L, Albumin 3.1 L Vital Signs Date Time Temp Pulse Resp B/P (MAP) Pulse Ox O2 Delivery O2 Flow Rate FiO2 03/19/19 18:00 98.9 73 16 126/64 (84) 03/19/19 16:15 Room Air 03/16/19 18:00 96 THANH ISAACS MD Mar 19, 2019 20:42
[2019-03-19 20:54] VITALS: BP 126/64
[2019-03-19] MEDS: OLANZapine ORAL DISINTEGRATING TAB 5MG PO PRN (21:54)
[2019-03-19] MEDS: ACETAMINOPHEN 500 MG TAB PO PRN (21:54)
[2019-03-20] MEDS: ACETAMINOPHEN 500 MG TAB PO PRN (03:36)
[2019-03-20 07:04] VITALS: BP 130/70
[2019-03-20 08:35] LABS: ALBUMIN 3.7 GM/DL (3.2-5.2); ALT/SGPT 219 U/L (12-78); BILIRUBIN,TOTAL 0.6 MG/DL (0.2-1.0); BLOOD UREA NITROGEN 16 MG/DL (7-18); CALCIUM LEVEL 9.2 MG/DL (8.8-10.2); CARBON DIOXIDE LEVEL 26 MEQ/L (21-32); CHLORIDE LEVEL 108 MEQ/L (98-107); CREATININE FOR GFR 0.67 MG/DL (0.55-1.30); GLOMERULAR FILTRATION RATE > 60.0 (>39); GLUCOSE, FASTING 88 MG/DL (70-100); POTASSIUM SERUM 3.8 MEQ/L (3.5-5.1); SODIUM LEVEL 140 MEQ/L (136-145); TOTAL PROTEIN 6.9 GM/DL (6.4-8.2)
[2019-03-20] MEDS: LISINOPRIL 5 MG TAB PO SCH (09:23)
[2019-03-20] MEDS: AMANTADINE 100 MG CAP PO SCH (09:23)
[2019-03-20] MEDS: FERROUS SULFATE 325MG TAB PO SCH (09:23)
[2019-03-20] MEDS: ENOXAPARIN 40 MG/0.4 ML SYRINGE (J1650) SC SCH (09:23)
[2019-03-20] MEDS: CEFDINIR 300 MG CAP (OMNICEF) PO SCH ×2 (09:23→21:25)
[2019-03-20] MEDS: PROPRANOLOL 10 MG TAB PO SCH ×3 (09:34→21:26)
[2019-03-20 11:59] VITALS: BP 130/72
[2019-03-20] MEDS: DOCUSATE SODIUM 100 MG CAP PO SCH ×2 (12:48→21:25)
[2019-03-20] MEDS: OLANZapine ORAL DISINTEGRATING TAB 5MG PO PRN ×2 (14:36→21:26)
[2019-03-20] MEDS: MAALOX 30 ML SUSP *UDC PO PRN ×2 (17:44→23:08)
[2019-03-20 18:00] VITALS: BP 124/78
--- NOTE | 2019-03-20 18:41 | IPNPDOC ---
Text Note Date of Service The patient was seen on 03/20/19. NOTE Subjective: Remarkably, the patient recalls this property underwriter by name. She's had some decreased appetite today. She has had some reflux symptoms. Staff notes that she has had a change in her sitter and it has upset her a bit. Objective GENERAL: Frail-appearing elderly female in no acute distress. SKIN : Warm, dry intact, bilateral lower extremity discoloration HEENT: Atraumatic, normocephalic, PERRL, moist mucous membrane CARDIOVASCULAR: Regular rate and rhythm, S1S2, no JVD, no edema, distal pulses + and palpable RESP: Clear to auscultation ABDOMEN: Soft, nontender, nondistended, normal bowel tones MS: no joint deformities, no pedal edema NEURO: Alert and oriented x 1, CN2-12 grossly intact, the patient is tremulous PSYCH: Patient is generally calm and even a bit social. ASSESSMENT/PLAN: 1. Hypertension--patient continues on lisinopril for blood pressure control. 2. Hypokalemia.--Resolved. 3. Elevated liver enzymes--this is of unclear etiology. It is being attributed to medications. They appear to be resolving, but we need to continue to monitor for perhaps one more day. Right upper quadrant ultrasound did not reveal any herman er pathology. However, it was unclear whether her gallbladder was still present. Hepatitis panel is negative. VS,Fishbone, I+O VS, Fishbone, I+O Laboratory Tests 03/20/19 08:00 Calcium Level 9.2, Aspartate Amino Transf (AST/SGOT) 87 H, Alanine Aminotrans ferase (ALT/SGPT) 219 H, Alkaline Phosphatase 341 H, Total Bilirubin 0.6, Total Protein 6.9, Albumin 3.7 Vital Signs Date Time Temp Pulse Resp B/P (MAP) Pulse Ox O2 Delivery O2 Flow Rate FiO2 03/20/19 15:28 88 126/76 03/20/19 11:59 Room Air 03/20/19 11:59 98.8 14 96 THANH ISAACS MD Mar 20, 2019 18:41
[2019-03-21] MEDS: ACETAMINOPHEN 500 MG TAB PO PRN (02:02)
[2019-03-21 07:03] VITALS: BP 129/59
[2019-03-21 08:17] LABS: ALBUMIN 3.1 GM/DL (3.2-5.2); ALT/SGPT 137 U/L (12-78); BILIRUBIN,TOTAL 0.6 MG/DL (0.2-1.0); BLOOD UREA NITROGEN 16 MG/DL (7-18); CALCIUM LEVEL 8.8 MG/DL (8.8-10.2); CARBON DIOXIDE LEVEL 26 MEQ/L (21-32); CHLORIDE LEVEL 107 MEQ/L (98-107); CREATININE FOR GFR 0.64 MG/DL (0.55-1.30); GLOMERULAR FILTRATION RATE > 60.0 (>39); GLUCOSE, FASTING 83 MG/DL (70-100); POTASSIUM SERUM 3.8 MEQ/L (3.5-5.1); SODIUM LEVEL 142 MEQ/L (136-145); TOTAL PROTEIN 5.6 GM/DL (6.4-8.2)
[2019-03-21] MEDS: CEFDINIR 300 MG CAP (OMNICEF) PO SCH ×2 (09:55→21:30)
[2019-03-21] MEDS: ENOXAPARIN 40 MG/0.4 ML SYRINGE (J1650) SC SCH (09:55)
[2019-03-21] MEDS: FERROUS SULFATE 325MG TAB PO SCH (09:55)
[2019-03-21] MEDS: DOCUSATE SODIUM 100 MG CAP PO SCH ×2 (09:55→21:30)
[2019-03-21] MEDS: AMANTADINE 100 MG CAP PO SCH (09:56)
[2019-03-21] MEDS: PROPRANOLOL 10 MG TAB PO SCH ×3 (10:09→21:30)
[2019-03-21] MEDS: LISINOPRIL 5 MG TAB PO SCH (10:09)
--- NOTE | 2019-03-21 11:00 | MHIPNPDOC ---
[facility] Progress Note Progress Note DATE OF SERVICE: 03/21/19 HISTORY: Patient is a 73 -year-old , female, with a history of schizophrenia and not in any current outpatient psych treatment for years who was brought in under 9.41 made by due to pt no sleeping, eating, having AH causing her to be in a continuous dialog with people that aren't there, not care for herself, and refusing to go to medical appts per in ED. In ED pt appeared disheveled, disorganized, and distracted by AH off a "vee that annoy's me... a nuance kind of person that is frustrating all the time" and preoccupied with her being able to take her to outpatient appts unable to focus or understand that she is being admitted to [facility]. Pt is a poor historian so history gathered from previous records. VITAL SIGNS: Aspartate Amino Transf (AST/SGOT) 48H, Alanine Aminotransferase (ALT/SGPT) 137H, Alkaline Phosphatase 248H, Total Bilirubin 0.6 (trending down well). Medical provider to recheck labs and get liver U/S and hepatitis s creening NEW TEST RESULTS: Head CT w/o contrast on admission: Highly volunteer patient representative of dementia as has atrophy and chronic microangiopathic changes, venatical dilation IMPRESSION: 1. No CT evidence of intracranial hemorrhage, mass effect or midline shift. 2. Age-related cerebral atrophy with chronic microangiopathic changes. 3. Degree of ventricular dilatation is felt to be out of proportion to the degree of cerebral atrophy. Correlate clinically for normal pressure hydrocephalus. 4. 3.5 x 2.3 cm posterior cranial fossa arachnoid cyst. Liver U/S: IMPRESSION: Significantly limited exam quality. Uncertain whether the gallbladder was visualized. CBD 0.7 cm. No ascites or right renal abnormality seen. CURRENT MEDICATIONS: See below. MENTAL STATUS EXAMINATION: Pt asleep and hard to arouse so left sleeping, unable to assess, Per Thursday note: General Appearance: unkempt, appears stated age, hospital scrubs/clothing, out of bed walking milieu with walking with staff Build: average Demeanor: confused Eye Contact: fair Activity: slowed Behavior: withdrawn confused Speech: low in volume, mumbles, unintelligible Mood: confused Mood mumbling unintelligibly Affect: disorganized and confused Thought Process: incoherent and confused today Thought Content (Delusions): denies SI/HI, AVH today Thought Content (Other): less preoccupied and denies ideas of reference, internal-stimuli Thought Content (Aggressive): none reported Perception (Hallucinations): auditory Perception (Other): none reported Cognition (Impairment of): memory, attention/concentration, ability to abstract Cognition(Intelligence Est.): other (unable to assess) Oriented: Awake, not oriented Insight: poor as pt is demented Judgment: Poor as pt is demented Psychosis: none reported 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 LFTS are trending down, liver U/S unable to be completed. Pt asleep currently and unable to assess, 1:1 sitter plans to get pt up to eat and walk soon. Per Thursday note: "Per seen with 1:1 sitter present for safety, help with ambulation with walker, and aid. Staff getting getting pt out of bed, assisting pt with ambulation on unit, sitting in chair to eat tid and pt appears better due to assistance walking the unit with walker with staff. She continues to be confused and mumbling something when seen. She is tolerating inderal and amantidine with improved tremors today." MANAGEMENT PLAN: continue plan, encourage eating. amantidine 100mg bid inderal 10mg tid TIME SPENT: 30 minutes. Vital Signs Vital Signs Date Time Temp Pulse Resp B/P (MAP) Pulse Ox O2 Delivery O2 Flow Rate FiO2 03/21/19 07:03 96.8 64 14 129/59 (82) 03/20/19 11:59 Room Air 03/20/19 11:59 96 Laboratory Data 24H Labs Laboratory Tests 2 03/21/19 07:21: Anion Gap 9, Glomerular Filtration Rate > 60.0, Blood Urea Nitrogen 16, Creatinine 0.64, Sodium Level 142, Potassium Level 3.8, Chloride Level 107, Carbon Dioxide Level 26, Calcium Level 8.8, Aspartate Amino Transf (AST/SGOT) 48H, Alanine Aminotransferase (ALT/SGPT) 137H, Alkaline Phosphatase 248H, Total Bilirubin 0.6, Total Protein 5.6L, Albumin 3.1L, Albumin/Globulin Ratio 1.24 CBC/BMP Laboratory Tests 03/21/19 07:21 Calcium Level 8.8, Aspartate Amino Transf (AST/SGOT) 48 H, Alanine Aminotransferase (ALT/SGPT) 137 H, Alkaline Phosphatase 248 H, Total Bilirubin 0.6, Total Protein 5.6 L, Albumin 3.1 L Current Medications Current Medications Acetaminophen (Tylenol Tab) 1,000 mg TID PRN PO PAIN Last administered on 03/21/19 02:02; Start 03/14/19 at 15:15 Al Hydrox/Mg Hydrox/Simethicone (Mylanta) 30 ml Q4HP PRN PO HEARTBURN Last administered on 03/20/19 23:08; Start 03/20/19 at 17:30 Amantadine HCl (Symmetrel) 100 mg DAILY PO Last administered on 03/20/19 09:23; Start 03/18/19 at 09:00 Benztropine Mesylate (Cogentin) 0.5 mg DAILY PO ; Start 03/18/19 at 09:00; Status Cancel Cefdinir (Omnicef) 300 mg BID PO Last administered on 03/20/19 21:25; Start 03/17/19 at 09:00; Stop 03/22/19 at 08:59 Docusate Sodium (Colace) 100 mg BID PO Last administered on 03/20/19 21:25; Start 03/20/19 at 09:00 Enoxaparin Sodium (Lovenox) 40 mg DAILY SC Last administered on 03/20/19 09:23; Start 03/15/19 at 09:00 Enoxaparin Sodium (Lovenox) 40 mg Q12H SC ; Start 03/15/19 at 10:45; Stop 03/15/19 at 11:00; Status DC Ferrous Sulfate (Ferrous Sulfate) 325 mg DAILY PO Last administered on 03/20/19 09:23; Start 03/15/19 at 09:00 Home Med (Med Rec Complete!) ASDIRECTED XX ; Start 03/14/19 at 09:15; Stop 03/14/19 at 09:15; Status DC Lisinopril (Prinivil) 5 mg DAILY PO Last administered on 03/20/19 09:23; Start 03/15/19 at 09:00 Magnesium Hydroxide (Milk Of Magnesia) 30 ml DAILYPRN PRN PO CONSTIPATION; Start 03/14/19 at 15:15 Miscellaneous (Unresolved Clarification Entry) SEE LABEL COMMENTS DAILY XX ; Start 03/16/19 at 09:00; Stop 03/18/19 at 08:23; Status DC Miscellaneous (Unresolved Clarification Entry) SEE LABEL COMMENTS DAILY XX ; Start 03/21/19 at 09:00 Olanzapine (ZyPREXA ZYDIS) 5 mg Q4HP PRN PO AGITATION Last administered on 03/20/19at 21:26; Start 03/14/19 at 15:15 Potassium Chloride (Micro-K Extencaps) 40 meq BID PO Last administered on 03/15/19at 21:51; Start 03/15/19 at 09:00; Stop 03/15/19 at 21:01; Status DC Propranolol HCl (Inderal) 10 mg TID PO Last administered on 03/20/19at 21:26; Start 03/17/19 at 16:00 Quetiapine Fumarate (SEROquel) 12.5 mg BID PO Last administered on 03/17/19at 20:01; Start 03/17/19 at 21:00; Stop 03/18/19 at 08:22; Status DC Quetiapine Fumarate (SEROquel) 12.5 mg BID PO Last administered on 03/16/19at 09:06; Start 03/15/19 at 21:00; Stop 03/16/19 at 10:11; Status DC Quetiapine Fumarate (SEROquel) 25 mg QHS PO Last administered on 03/16/19at 21:53; Start 03/16/19 at 21:00; Stop 03/17/19 at 09:09; Status DC Allergies Coded Allergies: No Known Allergies (Unverified , 06/17/17) LUBA CHANCE DO Mar 21, 2019 9:25 am
[2019-03-21 18:16] VITALS: BP 130/79
--- NOTE | 2019-03-21 20:07 | IPNPDOC ---
Text Note Date of Service The patient was seen on 03/21/19. NOTE Subjective: Events of overnight is that the patient was apparently fairly const ipated and decided to manually disimpact herself in her room. Objective GENERAL: Frail-appearing elderly female in no acute distress. SKIN : Warm, dry intact, bilateral lower extremity discoloration HEENT: Atraumatic, normocephalic, PERRL, moist mucous membrane CARDIOVASCULAR: Regular rate and rhythm, S1S2, no JVD RESP: Clear to auscultation ABDOMEN: Soft, nontender, nondistended, normal bowel tones MS: no joint deformities, no pedal edema, pedal pulses are palpable NEURO: Alert and oriented x 1, CN2-12 grossly intact, the patient is tremulous PSYCH: Patient is generally calm and even a bit social. ASSESSMENT/PLAN: 1. Hypertension--patient continues on lisinopril for blood pressure control. 2. Hypokalemia.--Resolved. 3. Elevated liver enzymes--this is of unclear etiology. It is being attributed to medications. They are resolving. Right upper quadrant ultrasound did not reveal any liver pathology. However, it was unclear whether her gallbladder was still present. Hepatitis panel is negative. 4. Constipation--the patient is now on a bowel care program inclusive of Colace and MiraLAX. The patient is overall medically stable. Bowel care and hypertension treatment are appropriate. Patient does not require further medical monitoring. We will si gn off. Please do not hesitate to reconsult if an acute medical issue occurs. VS,Fishbone, I+O VS, Fishbone, I+O Laboratory Tests 03/21/19 07:21 Calcium Level 8.8, Aspartate Amino Transf (AST/SGOT) 48 H, Alanine Aminotransferase (ALT/SGPT) 137 H, Alkaline Phosphatase 248 H, Total Bilirubin 0.6, Total Protein 5.6 L, Albumin 3.1 L Vital Signs Date Time Temp Pulse Resp B/P (MAP) Pulse Ox O2 Delivery O2 Flow Rate FiO2 03/21/19 18:16 100.2 96 16 130/79 (96) 03/21/19 10:38 Room Air 03/20/19 11:59 96 THANH ISAACS MD Mar 21, 2019 20:07
[2019-03-22] MEDS: MAALOX 30 ML SUSP *UDC PO PRN (02:40)
[2019-03-22 06:48] VITALS: BP 145/80
[2019-03-22] MEDS: AMANTADINE 100 MG CAP PO SCH (09:31)
[2019-03-22] MEDS: MIRALAX *UNIT DOSE* 17GM PACKET PO SCH (09:32)
[2019-03-22] MEDS: FERROUS SULFATE 325MG TAB PO SCH (09:32)
[2019-03-22] MEDS: DOCUSATE SODIUM 100 MG CAP PO SCH ×2 (09:32→21:00)
[2019-03-22] MEDS: ENOXAPARIN 40 MG/0.4 ML SYRINGE (J1650) SC SCH (09:32)
--- NOTE | 2019-03-22 09:45 | MHIPNPDOC ---
[facility] Progress Note Progress Note DATE OF SERVICE: 03/22/19 HISTORY: Patient is a 73 -year-old , female, with a history of schizophrenia and not in any current outpatient psych treatment for years who was brought in under 9.41 made by due to pt no sleeping, eating, having AH causing her to be in a continuous dialog with people that aren't there, not care for herself, and refusing to go to medical appts per in ED. In ED pt appeared disheveled, disorganized, and distracted by AH off a "vee that annoy's me... a nuance kind of person that is frustrating all the time" and preoccupied with her being able to take her to outpatient appts unable to focus or understand that she is being admitted to [facility]. Pt is a poor historian so history gathered from previous records. VITAL SIGNS: Aspartate Amino Transf (AST/SGOT) 48H, Alanine Aminotransferase (ALT/SGPT) 137H, Alkaline Phosphatase 248H, Total Bilirubin 0.6 (trending down well). Medical provider to recheck labs and get liver U/S and hepatitis screening NEW TEST RESULTS: Head CT w/o contrast on admission: Highly underwriting service representative of dementia as has atrophy and chronic microangiopathic changes, venatical dilation IMPRESSION: 1. No CT evidence of intracranial hemorrhage, mass effect or midline shift. 2. Age-related cerebral atrophy with chronic microangiopathic changes. 3. Degree of ventricular dilatation is felt to be out of proportion to the degree of cerebral atrophy. Correlate clinically for normal pressure hydrocephalus. 4. 3.5 x 2.3 cm posterior cranial fossa arachnoid cyst. Liver U/S: IMPRESSION: Significantly limited exam quality. Uncertain whether the gallbladder was visualized. CBD 0.7 cm. No ascites or right renal abnormality seen. CURRENT MEDICATIONS: See below. MENTAL STATUS EXAMINATION: General Appearance: unkempt, appears stated age, hospital scrubs/clothing, out of bed walking milieu with walking with staff Build: average Demeanor: calm, cooperative Eye Contact: fair Activity: slowed Behavior: cooperative, eating breakfast Speech: speech is more clear and regular Mood: euthymic, full Mood "good" Affect: congruent Thought Process: linear and logical Thought Content (Delusions): denies SI/HI, AVH today Thought Content (Other): does not appear psychotic or overtly confused Thought Content (Aggressive): none reported Perception (Hallucinations): auditory Perception (Other): none reported Cognition (Impairment of): memory, attention/concentration Cognition(Intelligence Est.): demented Oriented: Awake, oriented to place and self Insight: poor as pt is demented Judgment: Poor as pt is demented Psychosis: none reported 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 LFTS are trending down, liver U/S unable to be completed. Pt is up and eating breakfast with 1:1 sitter present. States she's doing good and looking forward to going home soon. She no longer appears overtly confused as thoughts are more linear and logical with clear speech. Tremors are improved with meds she's tolerating well. Energy is improved with proper nutrition and ambulating regularly on milieu. MANAGEMENT PLAN: continue plan, encourage eating. amantidine 100mg bid inderal 10mg tid TIME SPENT: 30 minutes. Vital Signs Vital Signs Date Time Temp Pulse Resp B/P (MAP) Pulse Ox O2 Delivery O2 Flow Rate FiO2 03/22/19 06:48 98.9 92 18 145/80 (101) 03/21/19 10:38 Room Air 03/20/19 11:59 96 Current Medications Current Medications Acetaminophen (Tylenol Tab) 1,000 mg TID PRN PO PAIN Last administered on 03/21/19at 02:02; Start 03/14/19 at 15:15 Al Hydrox/Mg Hydrox/Simethicone (Mylanta) 30 ml Q4HP PRN PO HEARTBURN Last administered on 03/22/19at 02:40; Start 03/20/19 at 17:30 Amantadine HCl (Symmetrel) 100 mg DAILY PO Last administered on 03/21/19at 09:56; Start 03/18/19 at 09:00 Benztropine Mesylate (Cogentin) 0.5 mg DAILY PO ; Start 03/18/19 at 09:00; Status Cancel Cefdinir (Omnicef) 300 mg BID PO Last administered on 03/21/19at 21:30; Start 03/17/19 at 09:00; Stop 03/22/19 at 08:59; Status DC Docusate Sodium (Colace) 100 mg BID PO Last administered on 03/21/19 21:30; Start 03/20/19 at 09:00 Enoxaparin Sodium (Lovenox) 40 mg DAILY SC Last administered on 03/21/19at 09:55; Start 03/15/19 at 09:00 Enoxaparin Sodium (Lovenox) 40 mg Q12H SC ; Start 03/15/19 at 10:45; Stop 03/15/19 at 11:00; Status DC Ferrous Sulfate (Ferrous Sulfate) 325 mg DAILY PO Last administered on 03/21/19at 09:55; Start 03/15/19 at 09:00 Home Med (Med Rec Complete!) ASDIRECTED XX ; Start 03/14/19 at 09:15; Stop 03/14/19 at 09:15; Status DC Lisinopril (Prinivil) 5 mg DAILY PO Last administered on 03/21/19at 10:09; Start 03/15/19 at 09:00 Magnesium Hydroxide (Milk Of Magnesia) 30 ml DAILYPRN PRN PO CONSTIPATION; Start 03/14/19 at 15:15 Miscellaneous (Unresolved Clarification Entry) SEE LABEL COMMENTS DAILY XX ; Start 03/16/19 at 09:00; Stop 03/18/19 at 08:23; Status DC Miscellaneous (Unresolved Clarification Entry) SEE LABEL COMMENTS DAILY XX ; Start 03/21/19 at 09:00; Stop 03/21/19 at 10:50; Status DC Olanzapine (ZyPREXA ZYDIS) 5 mg Q4HP PRN PO AGITATION Last administered on 03/20/19at 21:26; Start 03/14/19 at 15:15 Polyethylene Glycol (Miralax) 1 pkt DAILY PO ; Start 03/22/19 at 09:00 Potassium Chloride (Micro-K Extencaps) 40 meq BID PO Last administered on 03/15/19at 21:51; Start 03/15/19 at 09:00; Stop 03/15/19 at 21:01; Status DC Propranolol HCl (Inderal) 10 mg TID PO Last administered on 03/21/19at 21:30; Start 03/17/19 at 16:00 Quetiapine Fumarate (SEROquel) 12.5 mg BID PO Last administered on 03/17/19at 20:01; Start 03/17/19 at 21:00; Stop 03/18/19 at 08:22; Status DC Quetiapine Fumarate (SEROquel) 12.5 mg BID PO Last administered on 03/16/19at 09:06; Start 03/15/19 at 21:00; Stop 03/16/19 at 10:11; Status DC Quetiapine Fumarate (SEROquel) 25 mg QHS PO Last administered on 03/16/19at 21:53; Start 03/16/19 at 21:00; Stop 03/17/19 at 09:09; Status DC Allergies Coded Allergies: No Known Allergies (Unverified , 06/17/17) LUBA CHANCE DO Mar 22, 2019 9:45 am
[2019-03-22] MEDS: PROPRANOLOL 10 MG TAB PO SCH ×3 (09:58→21:00)
[2019-03-22] MEDS: LISINOPRIL 5 MG TAB PO SCH (09:59)
[2019-03-22 18:31] VITALS: BP 148/93
[2019-03-23 06:24] VITALS: BP 134/78
[2019-03-23] MEDS ORDERED: PROP10TA56 PO (08:58)
[2019-03-23] MEDS ORDERED: AMAN100T PO (08:58)
--- NOTE | 2019-03-23 08:59 | MHDSPDOC ---
[facility] Discharge Summary Discharge Summary DATE OF ADMISSION: Mar 14, 2019 at 3:05 pm DATE OF DISCHARGE: March 23, 2019 DISCHARGE DIAGNOSES: Delirium secondary GME - UTI, now resolved vascular dementia - moderate to severe REASON FOR ADMISSION: Patient is a 73 -year-old , female, with a history of schizophrenia and not in any current outpatient psych treatment for years who was brought in under 9.41 made by due to pt no sleeping, eating, having AH causing her to be in a continuous dialog with people that aren't there, not care for herself, and refusing to go to medical appts per in ED. In ED pt appeared disheveled, disorganized, and distracted by AH off a "vee that annoy's me... a nuance kind of person that is frustrating all the time" and preoccupied with her being able to take her to outpatient appts unable to focus or understand that she is being admitted to [facility]. Pt is a poor historian so history gathered from previous records. CONSULTANTS INVOLVED: medicine regarding medical comorbidities, UTI, and elevated LFTs. TEST RESULTS: Urine Culture:03/14/19 Klebsiella Pneumoniae LFTs: Final 03/21/19 AST 48, ALT 137, Alk Phos 248 (greatly improved thru hospitalization) Head CT w/o contrast on admission: Highly customer solutions representative of dementia as has atrophy and chronic microangiopathic changes, venatical dilation IMPRESSION: 1. No CT evidence of intracranial hemorrhage, mass effect or midline shift. 2. Age-related cerebral atrophy with chronic microangiopathic changes. 3. Degree of ventricular dilatation is felt to be out of proportion to the degree of cerebral atrophy. Correlate clinically for normal pressure hydrocephalus. 4. 3.5 x 2.3 cm posterior cranial fossa arachnoid cyst. Liver U/S: IMPRESSION: Significantly limited exam quality. Uncertain whether the gallbladder was visualized. CBD 0.7 cm. No ascites or right renal abnormality seen. TREATMENT AND PROGRESS ON THE UNIT : Pt was admitted to [facility], seen for psychiatric assessment and started on seroquel 12.5mg bid for anxiety/delirium that was later discontinued due to extremely elevation LFTs 3 days after seroquel started. After seroquel discontinued LFTs progressively decreased to mildly high. She was placed on amantidine 100mg daily and inderal 10mg tid for tremor that she tolerated well and found beneficial. Medicine oversaw treatment of pt's medical comorbidities, UTI, and elevated LFTs during her stay. Her symptoms improved with continued treatment and her delirium resolved to pt being more clear, linear, logical in thought, much less confused and anxious, sleeping thru the night. Pt was aided 3 times a day with eating meals and ambulating the unit with the aid of a 1:1 sitter for assistance. Pt found her medications beneficial and tolerated them well. She attended groups daily d uring her stay. Her symptoms improved with treatment. On day of discharge she denied depression, anxiety, insomnia, SI/HI, hallucinations, delusions. She was discharged home after family meeting with her with follow-up at [facility]. She felt safe for discharge. DISCHARGE ASSESSMENT: Per staff, pt sleeping thru the night and getting up with staffing aid for meals and to walk milieu with sitter present TID and doing well. LFTS are trending down, liver U/S unable to be completed. Pt is up and eating breakfast with 1:1 sitter present. States she's doing good and looking forward to going home today with her . Met her yesterday while he was visiting with the pt and states she doing well and he's looking forward to taking home with him. She no longer appears overtly confused as thoughts are more linear and logical with clear speech. Tremors are improved with meds she's tolerating well. Energy is improved with proper nutrition and ambulating regularly on milieu. She feels safe to be discharged with her today. MENTAL STATUS EXAMINATION ON DISCHARGE: General Appearance: clean, appears stated age, hospital scrubs/clothing, out of bed walking milieu with walking with staff Build: average Demeanor: calm, cooperative Eye Contact: fair Activity: slowed Behavior: cooperative, eating breakfast Speech: speech is more clear and regular Mood: euthymic, full Mood "good" Affect: congruent Thought Process: linear and logical Thought Content (Delusions): denies SI/HI, AVH today Thought Content (Other): does not appear psychotic or overtly confused Thought Content (Aggressive): none reported Perception (Hallucinations): auditory Perception (Other): none reported Cognition (Impairment of): memory, attention/concentration Cognition(Intelligence Est.): demented Oriented: Awake, oriented to place and self Insight: poor as pt is demented Judgment: Poor as pt is demented Psychosis: none reported MEDICATIONS ON DISCHARGE: amantidine 100mg daily inderal 10mg tid PLAN/FOLLOWUP ARRANGEMENTS: D/c home with with follow-up at [facility]. The amount of time spent in the coordination of care for this patient was approximately 30 minutes. Vital Signs/I&Os Vital Signs Date Time Temp Pulse Resp B/P (MAP) Pulse Ox O2 Delivery O2 Flow Rate FiO2 03/23/19 06:24 98.6 101 16 134/78 (96) 03/21/19 10:38 Room Air 03/20/19 11:59 96 Laboratory Data Microbiology Microbiology 03/14/19 Urine Culture - Final, Complete Klebsiella Pneumoniae Medications Scheduled Calcium/Magnesium/Zinc (Zwmrlwn-Kkzvwhycd-Nvav Tablet) 1 Each Tablet, 1 TAB PO DAILY, (Reported) Cholecalciferol (Vitamin D3) (Vitamin D3) 2,000 Unit Capsule, 2,000 UNIT PO DAILY, (Reported) Ferrous Sulfate (Iron) 325 Mg Tablet, 325 MG PO DAILY, (Reported) Omeprazole (Omeprazole) 10 Mg Capsule.dr, 10 MG PO DAILY, (Reported) Scheduled PRN Acetaminophen (Tylenol Extra Strength) 500 Mg Tablet, 1,000 MG PO TID PRN for PAIN, (Reported) Miscellaneous Medications [Patient Comment] , (Reported) PATIENT'S STATES THE PATIENT IS SUPPOSED TO BE TAKING LISINOPRIL 10MG DAILY (LAST FILLED 07/20/18 FOR 90 DAYS) AND CITALOPRAM 20MG DAILY (LAST FILLED 10/11/18 FOR 30 DAYS) BUT HAS NOT TAKEN IN ABOUT 6 MONTHS DUE TO REFUSAL TO GO TO PCP FOR APPOINTMENT Allergies Coded Allergies: No Known Allergies (Unverified , 06/17/17) LUBA CHANCE DO Mar 23, 2019 8:59 am
[2019-03-23] MEDS: DOCUSATE SODIUM 100 MG CAP PO SCH (09:00)
[2019-03-23 09:11] VITALS: BP 134/78
[2019-03-23] MEDS: ENOXAPARIN 40 MG/0.4 ML SYRINGE (J1650) SC SCH (09:11)
[2019-03-23] MEDS: ACETAMINOPHEN 500 MG TAB PO PRN (09:11)
[2019-03-23] MEDS: MIRALAX *UNIT DOSE* 17GM PACKET PO SCH (09:11)
[2019-03-23] MEDS: LISINOPRIL 5 MG TAB PO SCH (09:11)
[2019-03-23] MEDS: FERROUS SULFATE 325MG TAB PO SCH (09:11)
[2019-03-23] MEDS: PROPRANOLOL 10 MG TAB PO SCH (09:11)
[2019-03-23] MEDS: AMANTADINE 100 MG CAP PO SCH (09:11)
== END 2019-03-23 11:23 | disposition home or self-care (01) | DRG 885 ==
LOC: M ED 03:05 → M ED INP 15:05 → M PSY 19:00
PROVIDERS: ADMIT Psychiatry & Neurology Addiction Medicine; ATTEND Psychiatry & Neurology Psychiatry
DX: F20.0 Paranoid schizophrenia (principal); N39.0 Urinary tract infection, site not specified; R41.0 Disorientation, unspecified; I10 Essential (primary) hypertension; F01.50 Vascular dementia, unspecified severity, without behavioral disturbance, psychotic disturbance, mood disturbance, and anxiety; F32.9 Major depressive disorder, single episode, unspecified; F41.9 Anxiety disorder, unspecified; R26.81 Unsteadiness on feet; R25.1 Tremor, unspecified; K21.9 Gastro-esophageal reflux disease without esophagitis; E78.5 Hyperlipidemia, unspecified; E55.9 Vitamin D deficiency, unspecified; B96.1 Klebsiella pneumoniae [K. pneumoniae] as the cause of diseases classified elsewhere; E87.6 Hypokalemia; R63.0 Anorexia; R74.8 Abnormal levels of other serum enzymes; K59.00 Constipation, unspecified; Z79.899 Other long term (current) drug therapy

== ENCOUNTER 2019-05-29 04:54 | Emergency (ER) | payer MEDICARE ==
[~2019-05-29] VITALS: Ht 152.4 cm; Wt 49.6 kg
[~2019-05-29 04:54] MED LIST changes: +ACET-897 PO; +AMAN100T PO; +CALCTAB17 PO; +IRON65TA2 PO; +OMEP-358 PO; +OMEP10CA78 PO; -OMEP20TA PO; +PATIENT COMMENT; +PROP10TA56 PO; +VITA200021 PO
[2019-05-29 06:26] LABS: HEMOGLOBIN 13.8 g/dl (12.0-15.5); MEAN CORPUSCULAR HEMOGLOBIN 32.6 pg (27.0-33.0); MEAN CORPUSCULAR HGB CONC 34.5 g/dl (32.0-36.5); MEAN CORPUSCULAR VOLUME 94.6 fl (80.0-96.0); PLATELET COUNT, AUTOMATED 192 10^3/uL (150-450); RED BLOOD COUNT 4.23 10^6/uL (4.00-5.40); WHITE BLOOD COUNT 5.7 10^3/uL (4.0-10.0)
[2019-05-29 06:40] LABS: ACETAMINOPHEN LEVEL < 2.0 UG/ML (10.0-30.0); ALBUMIN 3.5 GM/DL (3.2-5.2); ALT/SGPT 123 U/L (12-78); BILIRUBIN,DIRECT 0.2 MG/DL (0.0-0.2); BILIRUBIN,TOTAL 0.5 MG/DL (0.2-1.0); BLOOD UREA NITROGEN 14 MG/DL (7-18); CALCIUM LEVEL 8.7 MG/DL (8.8-10.2); CARBON DIOXIDE LEVEL 25 MEQ/L (21-32); CHLORIDE LEVEL 108 MEQ/L (98-107); CREATININE FOR GFR 0.78 MG/DL (0.55-1.30); ETHYL ALCOHOL (ETHANOL) < 0.003 % (0.000-0.010); GLOMERULAR FILTRATION RATE > 60.0 (>39); GLUCOSE, FASTING 97 MG/DL (70-100); POTASSIUM SERUM 3.6 MEQ/L (3.5-5.1); SALICYLATE LEVEL < 1.7 MG/DL (5.0-30.0); SODIUM LEVEL 142 MEQ/L (136-145); TOTAL PROTEIN 6.2 GM/DL (6.4-8.2)
[2019-05-29] MEDS ORDERED: PROP10TA56 PO (09:20)
[2019-05-29] MEDS ORDERED: HYDR-643 PO (09:20)
[2019-05-29] MEDS ORDERED: AMAN100T PO (09:20)
[2019-05-29] MEDS ORDERED: lisinopriL 10 MG TAB PO ONE (10:30)
[2019-05-29 12:44] LABS: AMPHETAMINES LEVEL URINE NEGATIVE (NEGATIVE); BARBITURATES URINE NEGATIVE (NEGATIVE); BENZODIAZEPINES URINE NEGATIVE (NEGATIVE); CANNABINOIDS URINE NEGATIVE (NEGATIVE); COCAINE METABOLITE URINE NEGATIVE (NEGATIVE); METHADONE URINE NEGATIVE (NEGATIVE); OPIATES URINE NEGATIVE (NEGATIVE); PHENCYCLIDINE URINE NEGATIVE (NEGATIVE)
--- NOTE | 2019-05-29 14:02 | ECGEPIP ---
[facility] - ED Test Date: 2019-05-29 Pat Name: VARUN LUNA Department: Room: - Gender: Female Clinical Review Nurse: JMaryellen : 1945 Requested By: Mildred Galaviz Order Number: [id number] Reading MD: Mildred Galaviz Measurements Intervals [place] Rate: 79 P: 68 HI: 148 QRS: 48 QRSD: 85 T: 52 QT: 373 QTc: 429 Interpretive Statements SINUS RHYTHM NSTTW abnormalities INCREASED RATE 03/14/19 Electronically Signed on 05-29-2019 14:02:22 EDT by Mildred Galaviz
[2019-05-29 17:57] VITALS: BP 171/95
[2019-05-29] MEDS ORDERED: PROPRANOLOL 10 MG TAB PO ONE (18:00)
[2019-05-29] MEDS ORDERED: VITAMIN D 1,000 INTERNATIONAL UNITS TABLET PO SCH (18:00)
[2019-05-29] MEDS ORDERED: AMANTADINE 100 MG CAP PO ONE (18:00)
[2019-05-29] MEDS ORDERED: hydrOXYzine 10 MG TAB PO ONE (18:00)
[2019-05-29] MEDS ORDERED: FERROUS SULFATE 325MG TAB PO SCH (18:00)
[2019-05-29 18:46] VITALS: BP 185/85
== END 2019-05-29 18:48 | disposition short-term general hospital (02) ==
LOC: M ED 04:54
DX: F20.9 Schizophrenia, unspecified (principal); F32.9 Major depressive disorder, single episode, unspecified; F41.9 Anxiety disorder, unspecified; I10 Essential (primary) hypertension; Z91.14 Patient's other noncompliance with medication regimen; Z79.899 Other long term (current) drug therapy
CPT/HCPCS: 36415; 80048; 80076; 80307; 84443; 85027; 87088; 87186; 93005; 99284; G0480